=== PATIENT | female | born 1935 | race Caucasian/White ===

== ENCOUNTER 2020-07-11 13:18 | Emergency (ER) | payer MEDICARE, OTHER ==
[~2020-07-11] VITALS: Ht 152.4 cm; Wt 78.7 kg
[~2020-07-11 13:18] MED LIST: ASPI-255 PO; ATOR1TAB21 PO; LEVO100T5 PO; LISI40TA4 PO; METF10004 PO; OYST1TAB PO
[2020-07-11] MEDS ORDERED: INDA125TA PO (13:36)
[2020-07-11] MEDS ORDERED: NS 500 ML IV ONE ×2 (13:40→15:15)
[2020-07-11] MEDS ORDERED: ONDANSETRON 4MG/2ML VIAL IV ONE (14:10)
[2020-07-11 14:21] LABS: BASO # 0.2 10^3/uL (0.0-0.2); BASO % 0.9 % (0.0-1.0); EOS # 0.1 10^3/uL (0.0-0.5); EOS % 0.7 % (0.0-3.0); HEMOGLOBIN 14.3 g/dl (12.0-15.5); LYMPH # 0.9 10^3/uL (1.5-5.0); LYMPH % 5.1 % (24.0-44.0); MEAN CORPUSCULAR HEMOGLOBIN 30.6 pg (27.0-33.0); MEAN CORPUSCULAR HGB CONC 31.8 g/dl (32.0-36.5); MEAN CORPUSCULAR VOLUME 96.4 fl (80.0-96.0); MONO # 1.8 10^3/uL (0.0-0.8); MONO % 9.6 % (2.0-8.0); NEUTROPHILS % 82.2 % (36.0-66.0); PLATELET COUNT, AUTOMATED 396 10^3/uL (150-450); RED BLOOD COUNT 4.67 10^6/uL (4.00-5.40)
[2020-07-11 14:22] LABS: WHITE BLOOD COUNT 18.2 10^3/uL (4.0-10.0)
--- NOTE | 2020-07-11 14:28 | REP ---
INDICATION: wkness. COMPARISON: None. TECHNIQUE: Single portable AP view of the chest was performed. FINDINGS: There is mild fibro atelectatic change in the left lung base. No consolidating infiltrate is seen. The heart is not significantly enlarged. There is calcification of the thoracic aorta. The mediastinal silhouette is otherwise unremarkable. The visualized osseous structures appear intact. IMPRESSION: No radiographic evidence of infiltrate. <Electronically signed by Tin Muniz > 07/11/20 [id number]
[2020-07-11 14:49] LABS: ALT/SGPT 30 U/L (12-78); AMYLASE 64 U/L (25-115); BILIRUBIN,DIRECT < 0.1 MG/DL (0.0-0.2); BILIRUBIN,TOTAL 0.2 MG/DL (0.2-1.0); BLOOD UREA NITROGEN 30 MG/DL (7-18); CALCIUM LEVEL 8.9 MG/DL (8.8-10.2); CARBON DIOXIDE LEVEL 22 MEQ/L (21-32); CHLORIDE LEVEL 110 MEQ/L (98-107); CK-MB VALUE MASS < 1.0 NG/ML (<3.6); CPK CREATINE PHOSPHOKINASE 41 U/L (26-192); CREATININE FOR GFR 1.55 MG/DL (0.55-1.30); GLOMERULAR FILTRATION RATE 33.7 (>32); GLUCOSE, FASTING 114 MG/DL (70-100); LIPASE 141 U/L (73-393); MB/CK RELATIVE INDEX 2.44 (< OR =4); POTASSIUM SERUM 4.3 MEQ/L (3.5-5.1); SODIUM LEVEL 140 MEQ/L (136-145); TOTAL PROTEIN 6.8 GM/DL (6.4-8.2); TROPONIN I < 0.02 NG/ML (< 0.10)
[2020-07-11] MEDS ORDERED: LIDOCAINE 2% 5ML JELLY UROJET TOP ONE (15:15)
[2020-07-11] MEDS ORDERED: ISOVUE-370 76% 100ML VIAL As Ordered ONE (15:20)
--- NOTE | 2020-07-11 15:48 | REP ---
INDICATION: V/D/abdominal pain, significant leukocytosis. COMPARISON: None. TECHNIQUE: Helical scanning was acquired and 4 mm axial images are re-formatted. Coronal and sagittal MPR images were generated and reviewed. The contrast enhancement dose is 100 mL of intravenous Isovue 370. FINDINGS: Preliminary digital lifestyle coordinator radiograph is unremarkable. Normal bowel gas pattern. There are clips in the gallbladder fossa. The liver is normal in size homogeneous in texture. There is a small sliding-type hiatal hernia. Normal adrenal glands are observed. There is of an abrupt occlusion of the proximal splenic artery noted on postcontrast images. Celiac axis branches and SMA branches are otherwise intact. There are multiple low-density areas in the spleen consistent with large areas of splenic infarction. There is some perisplenic fat streaking and a small sliver of fluid in the left pericolic gutter is seen related to this. There is vascular calcification at the origin of the renal arteries but no evidence of renal artery o'clock occlusion is appreciated. Bilateral renal cortical cysts are present. Flow is observed in the inferior mesenteric artery. Small and large intestinal bowel loops are unremarkable in the abdomen and pelvis. No uterine or ovarian abnormality is seen. Uterus is tipped somewhat to the left. There is mild left colonic diverticulosis without CT evidence of diverticulitis. No evidence of free air or other free fluid. No bony destructive lesion is appreciated. 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 Mild diffuse fatty infiltration of the liver. Hiatal hernia. <Electronically signed by Roberth Wiggins > 07/11/20 [id number]
[2020-07-11 15:52] LABS: PARTIAL THROMBOPLASTIN TIME > 240.0 SECONDS (24.2-38.5); PROTHROMBIN TIME > 150.0 SECONDS (12.5-14.3)
--- NOTE | 2020-07-11 15:59 | REP ---
INDICATION: V/D/abdominal pain, significant leukocytosis. COMPARISON: Comparison is made with today's chest x-ray.. TECHNIQUE: Contrast dose: 100 ML of Isovue [address] technique: Helical scanning is acquired and overlapping 1.5 mm and contiguous 3 mm axial images are reformatted. In addition, maximum intensity projection and multiplanar re-formation images are generated in sagittal and coronal imaging projections. FINDINGS: There is good opacification in the pulmonary arterial tree. There is no evidence of vessel cut off or filling defect to suggest pulmonary embolus. There is good opacification of the thoracic aorta and no evidence of aneurysm or dissection is seen. However, there is a large irregularly shaped elongate filling defect in the lumen of the descending thoracic aorta consistent with unstable thrombus. This is associated with some calcific plaquing. This irregularly-shaped thrombus measures up to 4.5 cm in craniocaudal length by 1.4 cm in greatest transverse dimension. No pleural or pericardial effusion is apparent. There is a small hiatal hernia. There is vascular calcification in the left coronary artery distribution and at the great vessel origins. The small left vertebral artery is seen to take a direct aortic origin which is a normal variant. Lung window settings demonstrate no evidence of infiltrate or lung mass. There is some lingular and left lower lobe linear density consistent with platelike atelectasis. No bony destructive lesion is seen. In the upper abdomen, evidence of splenic infarction is noted as described in the CT abdomen report from the same date. Abrupt occlusion of the proximal splenic artery is observed. IMPRESSION: No CT evidence of pulmonary embolus. There is a 4.5 x 1.4 cm large irregularly-shaped unstable thrombus in the lumen of the proximal descending thoracic aorta. 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 Critical Findings: Large irregular intraluminal proximal descending aortic thrombus. Acute planning infarction. The critical information above was relayed directly by me by telephone to Pa Colon on 07/11/2020 at 3:53 pm with readback verification. <Electronically signed by Roberth Wiggins > 07/11/20 [id number]
[2020-07-11 16:42] LABS: INR 1.14; PROTHROMBIN TIME 14.9 SECONDS (12.5-14.3)
[2020-07-11 16:43] LABS: PARTIAL THROMBOPLASTIN TIME 27.9 SECONDS (24.2-38.5)
[2020-07-11] MEDS ORDERED: PILL CUTTER 1 EACH XX ONE (16:48)
[2020-07-11 17:05] LABS: RSV AMPLIFICATION NEGATIVE (NEGATIVE)
[2020-07-11] MEDS ORDERED: HEPARIN DRIP 25,000 UNITS in IV 1 EA IV SCH (17:15)
[2020-07-11] MEDS ORDERED: HEPARIN SOD (PORCINE) 5000UNITS/ML 1ML VIAL/SYRINGE IV ONE (17:15)
[2020-07-11 18:34] VITALS: BP 121/64
--- NOTE | 2020-07-11 19:49 | ECGEPIP ---
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
== END 2020-07-11 18:34 | disposition short-term general hospital (02) ==
LOC: M ED 13:18
DX: I74.11 Embolism and thrombosis of thoracic aorta (principal); I74.8 Embolism and thrombosis of other arteries; R11.10 Vomiting, unspecified; R19.7 Diarrhea, unspecified; K44.9 Diaphragmatic hernia without obstruction or gangrene; E11.9 Type 2 diabetes mellitus without complications; I10 Essential (primary) hypertension; Z87.891 Personal history of nicotine dependence; Z79.899 Other long term (current) drug therapy
CPT/HCPCS: 36415; 71045; 71275; 74177; 80048; 80076; 81001; 82150; 82550; 82553; 83605; 83690; 84484; 85025; 85610; 85730; 87040; 87086; 87631; 93005; 93041; 96361; 96365; 96375; 99285; J1644; J2405; Q9967

== ENCOUNTER → 2020-07-19 | Outpatient (CLI) | payer MEDICARE, OTHER ==
[~2020-07-19] MED LIST changes: +INDA125TA PO; +ISOVUE-370 76% 100ML VIAL As Ordered ONE
--- NOTE | 2020-07-19 14:06 | REP ---
INDICATION: EMBOLISM AND THROMBOSIS OF UNSPECIFIED PARTS OF AORTA COMPARISON: 07/11/2020 TECHNIQUE: CT angiography attention pulmonary arteries and thoracic aorta after the intravenous administration of 75 cc Isovue 370. FINDINGS: Once again, there is excellent visualization of the pulmonary arterial vasculature. No focal filling defects have developed since the last exam. The abnormal descending thoracic aortic density seen on the prior exam persists, however, it is smaller and less attenuating. No new aortic abnormalities have developed. The mediastinum and pulmonary carmine are unchanged. There are no pleural or pericardial effusions. There is no significant change in appearance of the imaged upper abdomen or imaged osseous structures. IMPRESSION: Findings involving the descending thoracic aorta as described above. By CT criteria it appears to have improved, however, further evaluation and follow-up may be necessary. <Electronically signed by Ulysses Huerta > 07/19/20 [id number]
== END ==
LOC: M RAD 11:00
PROVIDERS: ATTEND Nurse Practitioner Family
DX: I74.10 Embolism and thrombosis of unspecified parts of aorta (principal)
CPT/HCPCS: 71275; Q9967

== ENCOUNTER → 2020-10-21 | Outpatient (CLI) | payer MEDICARE, OTHER ==
[~2020-10-21] MED LIST changes: -ISOVUE-370 76% 100ML VIAL As Ordered ONE
[2020-10-21 12:53] LABS: CREATININE FOR GFR 1.14 MG/DL (0.55-1.30); GLOMERULAR FILTRATION RATE 48.1 (>32)
== END ==
LOC: M LAB 11:23
PROVIDERS: ATTEND Surgery
DX: Z01.818 Encounter for other preprocedural examination (principal)

== ENCOUNTER → 2020-10-31 | Outpatient (CLI) | payer MEDICARE, OTHER ==
[~2020-10-31] MED LIST changes: +ISOVUE-370 76% 100ML VIAL As Ordered ONE
--- NOTE | 2020-10-31 15:05 | REP ---
INDICATION: EMBOLISM/THROMBOSIS OF THORACIC AORTA COMPARISON: 07/19/2020 TECHNIQUE: CT angiography of the chest attention aorta after the intravenous administration of 75 cc Isovue 370 FINDINGS: The intraluminal thoracic aortic low-density areas seen within the intravenous contrast on the 2 prior exams is no longer present. The contrast opacification throughout the imaged aorta is within normal limits. There is no ectasia or aneurysmal dilatation. Peripheral calcifications are noted status quo. Injection timing and factors related to cardiac output of also allowed for excellent visualization of the pulmonary arterial vasculature. No focal filling defects are present that would be considered consistent with acute pulmonary emboli. There is no significant change in appearance of the mediastinum or pulmonary carmine. There is no evidence of a mass or adenopathy. There are no pleural or pericardial effusions. There is no change in appearance of the imaged imaged osseous structures. Mild spinal degenerative changes are noted status quo. The imaged upper abdomen shows a change in the morphologic appearance of the spleen in which a very thin waist has developed. There are bilateral renal cysts status quo. Evaluation of the lung rob shows scattered patchy ground-glass opacities essentially unchanged compared to the prior exam and likely secondary to subsegmental atelectatic changes. No masses or abnormal nodules have developed. IMPRESSION: 1. The aorta is now seen to be within normal limits as described above. 2. No pulmonary arterial abnormality as described above. 3. Change in appearance of the spleen as described above and possibly secondary to a splenic infarction which has developed since the last exam. 4. Other findings as described above. <Electronically signed by Ulysses Huerta > 10/31/20 [id number]
--- NOTE | 2020-10-31 15:19 | REP ---
INDICATION: EMBOLISM AND THROMBOSIS OF THORASIC AORTA COMPARISON: None TECHNIQUE: Axial contrast-enhanced images from the lung bases to the pubic symphysis using arterial angiographic technique with coronal and sagittal reformations. This CT examination was performed using the following dose reduction techniques: Automated exposure control, adjustment of mA and/or kv according to the patient's size, and use of iterative reconstruction technique. FINDINGS: The spleen is improved in appearance when compared to prior examination small residual areas of infarction are suggested and the splenic artery at the level of the mid pancreas appears at least partially thrombosed with subsequent arterial supply to the spleen via smaller pancreaticoduodenal and gastric collateral arteries. No perisplenic stranding or drainable collection/abscess/fluid collection. Visualized portions of the liver are normal. Bilateral adrenal glands are unremarkable. Evidence for prior cholecystectomy. Kidneys demonstrate age-related cortical thinning, mild chronic perinephric stranding, and few bilateral hypodensities measuring up to 2 cm consistent with cysts. The enteric system is without obstruction or definite acute inflammatory process. Colonic diverticulosis noted without acute diverticulitis. Pelvis demonstrates normal bladder and age-appropriate uterus/adnexa. No ascites. No free air. No adenopathy. No focal inflammatory stranding. Musculoskeletal structures are intact and without acute osseous abnormality. The abdominal aorta demonstrates mild scattered atherosclerotic changes without aneurysm or dissection. Major branch vessels including celiac axis, superior mesenteric artery, and renal arteries demonstrate normal enhancement without obvious stenosis or occlusion. IMPRESSION: 1. Spleen has an improved appearance with smaller areas of residual infarction noted. Arterial supply to the spleen via small collateral vessels from the celiac axis noted. The splenic artery is minimally enhanced at the level of the mid pancreatic body. 2. Nonacute findings as noted above. <Electronically signed by Dylan Goldman > 10/31/20 [id number]
== END ==
LOC: M RAD 13:11
PROVIDERS: ATTEND Surgery
DX: I74.11 Embolism and thrombosis of thoracic aorta (principal)
CPT/HCPCS: 71275; 74174; Q9967

== ENCOUNTER 2021-04-01 09:31 | Inpatient (IN) | payer MEDICARE, OTHER ==
[~2021-04-01] VITALS: Ht 152.4 cm; Wt 69.9 kg
[~2021-04-01 09:31] MED LIST changes: -ISOVUE-370 76% 100ML VIAL As Ordered ONE
[2021-04-01] MEDS ORDERED: NS 1,000 ML IV ONE ×2 (09:55→11:30)
[2021-04-01] MEDS ORDERED: HOME MED LIST COMPLETE! XX SCH (10:05)
[2021-04-01 10:52] LABS: BASO # 0.2 10^3/uL (0.0-0.2); BASO % 1.2 % (0.0-1.0); EOS # 0.2 10^3/uL (0.0-0.5); HEMATOCRIT 47.1 % (36.0-47.0); HEMOGLOBIN 14.4 g/dl (12.0-15.5); LYMPH # 1.1 10^3/uL (1.5-5.0); LYMPH % 7.3 % (24.0-44.0); MEAN CORPUSCULAR HEMOGLOBIN 27.7 pg (27.0-33.0); MEAN CORPUSCULAR HGB CONC 30.6 g/dl (32.0-36.5); MEAN CORPUSCULAR VOLUME 90.6 fl (80.0-96.0); MONO # 1.3 10^3/uL (0.0-0.8); MONO % 8.9 % (2.0-8.0); NEUTROPHILS # 11.9 10^3/uL (1.5-8.5); NEUTROPHILS % 80.9 % (36.0-66.0); PLATELET COUNT, AUTOMATED 345 10^3/uL (150-450); WHITE BLOOD COUNT 14.8 10^3/uL (4.0-10.0)
[2021-04-01 11:20] LABS: ALBUMIN 3.5 GM/DL (3.2-5.2); BILIRUBIN,DIRECT 0.1 MG/DL (0.0-0.2); BILIRUBIN,TOTAL 0.4 MG/DL (0.2-1.0); CALCIUM LEVEL 9.9 MG/DL (8.8-10.2); CREATININE FOR GFR 1.87 MG/DL (0.55-1.30); GLOMERULAR FILTRATION RATE 27.1 (>32); POTASSIUM SERUM 3.5 MEQ/L (3.5-5.1); TOTAL PROTEIN 6.8 GM/DL (6.4-8.2)
[2021-04-01] MEDS ORDERED: ACETAMINOPHEN TAB 650MG DOSE (2X325MG) PO PRN (14:55)
[2021-04-01] MEDS ORDERED: MOM 30ML SUSPENSION UDC PO PRN (14:55)
[2021-04-01] MEDS ORDERED: MAALOX 30 ML SUSP *UDC PO PRN (14:55)
[2021-04-01 16:15] VITALS: BP 174/95
[2021-04-01] MEDS: NS 1,000 ML IV SCH ×2 (16:29→23:28)
[2021-04-01] MEDS: HEPARIN SOD (PORCINE) 5000UNITS/ML 1ML VIAL/SYRINGE SC SCH (21:06)
[2021-04-01 21:56] VITALS: BP 164/63
[2021-04-02] MEDS: LEVOTHYROXINE 100MCG TABLET (0.1MG) PO SCH (05:57)
[2021-04-02 06:00] VITALS: BP 160/65
[2021-04-02] MEDS: NS 1,000 ML IV SCH ×2 (07:02→21:01)
[2021-04-02] MEDS: HEPARIN SOD (PORCINE) 5000UNITS/ML 1ML VIAL/SYRINGE SC SCH ×2 (08:20→21:01)
[2021-04-02 09:42] LABS: BASO # 0.1 10^3/uL (0.0-0.2); BASO % 0.8 % (0.0-1.0); EOS # 0.1 10^3/uL (0.0-0.5); EOS % 0.5 % (0.0-3.0); HEMATOCRIT 39.8 % (36.0-47.0); LYMPH # 0.8 10^3/uL (1.5-5.0); LYMPH % 5.7 % (24.0-44.0); MEAN CORPUSCULAR HEMOGLOBIN 27.8 pg (27.0-33.0); MEAN CORPUSCULAR HGB CONC 30.4 g/dl (32.0-36.5); MEAN CORPUSCULAR VOLUME 91.5 fl (80.0-96.0); MONO # 1.2 10^3/uL (0.0-0.8); MONO % 8.4 % (2.0-8.0); NEUTROPHILS # 12.1 10^3/uL (1.5-8.5); PLATELET COUNT, AUTOMATED 264 10^3/uL (150-450); RED BLOOD COUNT 4.35 10^6/uL (4.00-5.40); WHITE BLOOD COUNT 14.5 10^3/uL (4.0-10.0)
[2021-04-02 09:44] LABS: HEMOGLOBIN 12.1 g/dl (12.0-15.5)
[2021-04-02 10:26] LABS: ALBUMIN 2.6 GM/DL (3.2-5.2); BILIRUBIN,TOTAL 0.3 MG/DL (0.2-1.0); CALCIUM LEVEL 8.2 MG/DL (8.8-10.2); CREATININE FOR GFR 1.3 MG/DL (0.55-1.30); GLOMERULAR FILTRATION RATE 41.2 (>32); MAGNESIUM LEVEL 1.6 MG/DL (1.8-2.4); POTASSIUM SERUM 2.9 MEQ/L (3.5-5.1); TOTAL PROTEIN 5.6 GM/DL (6.4-8.2)
[2021-04-02] MEDS: MAG SULF 1GM/100ML (MAG RUN) 1 GM in IV 1 EA IV SCH ×2 (11:03→12:02)
[2021-04-02] MEDS ORDERED: LOPERAMIDE 2 MG CAPLET PO PRN (11:30)
[2021-04-02] MEDS: lisinopriL 40 MG TAB PO SCH (12:02)
[2021-04-02] MEDS: CHOLESTYRAMINE 4 GM PWD PKT PO SCH ×3 (12:02→21:01)
[2021-04-02 12:19] LABS: FREE T4 2.18 NG/DL (0.76-1.46); THYROID STIMULATING HORMONE 0.105 uIU/ML (0.358-3.740)
[2021-04-02] MEDS: KCL 10MEQ/100ML SWI (KRUN) 10 MEQ in IV 1 EA IV SCH ×4 (13:13→16:25)
[2021-04-02 14:00] VITALS: BP 156/65
[2021-04-02] MEDS ORDERED: LOMOTIL 2.5MG/0.025MG TABLET PO SCH (16:00)
[2021-04-02 22:00] VITALS: BP 153/66
[2021-04-03] VITALS (7 sets, daily range): BP systolic 124–152; BP diastolic 67–73
[2021-04-03] MEDS: NS 1,000 ML IV SCH ×4 (00:30→20:30)
[2021-04-03] MEDS: LEVOTHYROXINE 100MCG TABLET (0.1MG) PO SCH (05:33)
[2021-04-03 07:09] LABS: BASO # 0.1 10^3/uL (0.0-0.2); BASO % 0.8 % (0.0-1.0); EOS # 0.2 10^3/uL (0.0-0.5); EOS % 1.3 % (0.0-3.0); HEMATOCRIT 37.4 % (36.0-47.0); HEMOGLOBIN 11.5 g/dl (12.0-15.5); LYMPH # 0.8 10^3/uL (1.5-5.0); LYMPH % 5.7 % (24.0-44.0); MEAN CORPUSCULAR HEMOGLOBIN 27.8 pg (27.0-33.0); MEAN CORPUSCULAR HGB CONC 30.7 g/dl (32.0-36.5); MEAN CORPUSCULAR VOLUME 90.6 fl (80.0-96.0); MONO # 1.4 10^3/uL (0.0-0.8); MONO % 9.6 % (2.0-8.0); NEUTROPHILS # 11.7 10^3/uL (1.5-8.5); PLATELET COUNT, AUTOMATED 247 10^3/uL (150-450); RED BLOOD COUNT 4.13 10^6/uL (4.00-5.40); WHITE BLOOD COUNT 14.2 10^3/uL (4.0-10.0)
[2021-04-03 07:47] LABS: ALBUMIN 2.3 GM/DL (3.2-5.2); BILIRUBIN,TOTAL 0.2 MG/DL (0.2-1.0); CALCIUM LEVEL 7.9 MG/DL (8.8-10.2); CREATININE FOR GFR 1.02 MG/DL (0.55-1.30); GLOMERULAR FILTRATION RATE 54.6 (>32); MAGNESIUM LEVEL 1.9 MG/DL (1.8-2.4); POTASSIUM SERUM 4.1 MEQ/L (3.5-5.1); TOTAL PROTEIN 5.2 GM/DL (6.4-8.2)
[2021-04-03] MEDS: HEPARIN SOD (PORCINE) 5000UNITS/ML 1ML VIAL/SYRINGE SC SCH ×2 (07:47→20:30)
[2021-04-03] MEDS: lisinopriL 40 MG TAB PO SCH (07:47)
[2021-04-03] MEDS: CHOLESTYRAMINE 4 GM PWD PKT PO SCH ×3 (07:47→20:30)
[2021-04-03] MEDS ORDERED: GOLYTELY SOLN 4000 ML BTL PO ONE (08:00)
[2021-04-03] MEDS ORDERED: FLEET ENEMA PR ONE (15:00)
[2021-04-03] MEDS ORDERED: fentaNYL 100 MCG/2 ML INJECTION (J3010) As Ordered ONE (17:32)
[2021-04-03] MEDS ORDERED: LIDOCAINE 2% 100MG/5ML SDV (FOR ANES.) As Ordered ONE (17:33)
[2021-04-03] MEDS ORDERED: propofoL 200 MG/20 ML VIAL As Ordered ONE (17:33)
[2021-04-03] MEDS ORDERED: LR 1,000 ML IV SCH (19:00)
[2021-04-03] MEDS ORDERED: ONDANSETRON 4MG/2ML VIAL IV PRN (19:00)
[2021-04-04] VITALS: BP 104/57
[2021-04-04 04:00] VITALS: BP 129/70
[2021-04-04] MEDS: LEVOTHYROXINE 100MCG TABLET (0.1MG) PO SCH (05:17)
[2021-04-04] MEDS: NS 1,000 ML IV SCH (05:17)
[2021-04-04 06:00] VITALS: BP 149/66
[2021-04-04 06:44] LABS: ALBUMIN 2.4 GM/DL (3.2-5.2); BILIRUBIN,TOTAL 0.4 MG/DL (0.2-1.0); CALCIUM LEVEL 8.5 MG/DL (8.8-10.2); CREATININE FOR GFR 1.03 MG/DL (0.55-1.30); MAGNESIUM LEVEL 1.7 MG/DL (1.8-2.4); POTASSIUM SERUM 3.8 MEQ/L (3.5-5.1); TOTAL PROTEIN 5.8 GM/DL (6.4-8.2)
[2021-04-04 07:37] LABS: BASO # 0.1 10^3/uL (0.0-0.2); BASO % 0.7 % (0.0-1.0); EOS # 0.1 10^3/uL (0.0-0.5); EOS % 0.9 % (0.0-3.0); HEMATOCRIT 36.4 % (36.0-47.0); HEMOGLOBIN 11.2 g/dl (12.0-15.5); LYMPH # 0.7 10^3/uL (1.5-5.0); LYMPH % 4.9 % (24.0-44.0); MEAN CORPUSCULAR HEMOGLOBIN 27.5 pg (27.0-33.0); MEAN CORPUSCULAR HGB CONC 30.8 g/dl (32.0-36.5); MEAN CORPUSCULAR VOLUME 89.2 fl (80.0-96.0); MONO # 1.5 10^3/uL (0.0-0.8); MONO % 10.9 % (2.0-8.0); NEUTROPHILS # 11.1 10^3/uL (1.5-8.5); NEUTROPHILS % 82.1 % (36.0-66.0); PLATELET COUNT, AUTOMATED 271 10^3/uL (150-450); RED BLOOD COUNT 4.08 10^6/uL (4.00-5.40); WHITE BLOOD COUNT 13.5 10^3/uL (4.0-10.0)
[2021-04-04] MEDS: lisinopriL 40 MG TAB PO SCH (08:44)
[2021-04-04] MEDS: CHOLESTYRAMINE 4 GM PWD PKT PO SCH (08:44)
[2021-04-04] MEDS: HEPARIN SOD (PORCINE) 5000UNITS/ML 1ML VIAL/SYRINGE SC SCH (08:45)
[2021-04-04] MEDS ORDERED: FUROSEMIDE 100MG/10ML VIAL (J1940) IV ONE (10:40)
[2021-04-04] MEDS ORDERED: CHOL4PW PO (11:08)
== END 2021-04-04 12:40 | disposition home or self-care (01) | DRG 683 ==
LOC: M ED 09:31 → M ED INP 14:52 → ENRESERV 15:40 → M MS5PR 16:38
PROVIDERS: ADMIT Family Medicine; ATTEND Family Medicine
PROC: 0DBN8ZZ Excision of Sigmoid Colon, Via Natural or Artificial Opening Endoscopic (ICD-10-PCS; 2021-04-03)
PROC: 0DBE8ZX Excision of Large Intestine, Via Natural or Artificial Opening Endoscopic, Diagnostic (ICD-10-PCS; 2021-04-03)
PROC: 0DB78ZX Excision of Stomach, Pylorus, Via Natural or Artificial Opening Endoscopic, Diagnostic (ICD-10-PCS; principal; 2021-04-03 17:30)
DX: N17.9 Acute kidney failure, unspecified (principal); E87.2 Acidosis; D12.5 Benign neoplasm of sigmoid colon; E11.9 Type 2 diabetes mellitus without complications; E78.5 Hyperlipidemia, unspecified; E03.9 Hypothyroidism, unspecified; Z90.49 Acquired absence of other specified parts of digestive tract; R11.15 Cyclical vomiting syndrome unrelated to migraine; R63.4 Abnormal weight loss; K44.9 Diaphragmatic hernia without obstruction or gangrene; K29.70 Gastritis, unspecified, without bleeding; K57.30 Diverticulosis of large intestine without perforation or abscess without bleeding; K64.8 Other hemorrhoids; K52.9 Noninfective gastroenteritis and colitis, unspecified; Z79.899 Other long term (current) drug therapy

== ENCOUNTER 2021-04-16 12:45 | Inpatient (IN) | payer MEDICARE, OTHER ==
[~2021-04-16] VITALS: Ht 152.4 cm; Wt 67.9 kg
[~2021-04-16 12:45] MED LIST changes: +CHOL4PW PO
[2021-04-16 15:41] LABS: BASO # 0.1 10^3/uL (0.0-0.2); BASO % 0.7 % (0.0-1.0); EOS # 0.1 10^3/uL (0.0-0.5); EOS % 0.3 % (0.0-3.0); HEMATOCRIT 46.7 % (36.0-47.0); HEMOGLOBIN 14.4 g/dl (12.0-15.5); LYMPH # 1.2 10^3/uL (1.5-5.0); LYMPH % 6.4 % (24.0-44.0); MEAN CORPUSCULAR HEMOGLOBIN 27.1 pg (27.0-33.0); MEAN CORPUSCULAR HGB CONC 30.8 g/dl (32.0-36.5); MEAN CORPUSCULAR VOLUME 87.9 fl (80.0-96.0); MONO % 8.7 % (2.0-8.0); NEUTROPHILS # 15.1 10^3/uL (1.5-8.5); NEUTROPHILS % 83.2 % (36.0-66.0); PLATELET COUNT, AUTOMATED 348 10^3/uL (150-450); RED BLOOD COUNT 5.31 10^6/uL (4.00-5.40); WHITE BLOOD COUNT 18.2 10^3/uL (4.0-10.0)
[2021-04-16 15:42] LABS: MONO # 1.6 10^3/uL (0.0-0.8)
[2021-04-16 17:14] LABS: ERYTHROCYTE SEDIMENTATION RATE 21 mm/hr (0-30)
[2021-04-16 17:26] LABS: C REACTIVE PROTEIN QUANTITATIV 9.19 MG/DL (0.00-0.30); CALCIUM LEVEL 9.1 MG/DL (8.8-10.2); CREATININE FOR GFR 1.32 MG/DL (0.55-1.30); GLOMERULAR FILTRATION RATE 40.5 (>32); POTASSIUM SERUM 3.6 MEQ/L (3.5-5.1)
[2021-04-16] MEDS ORDERED: cefTRIAXone SOD 1 GM in D5W MINI-BAG PLUS 50 ML IV ONE (17:50)
[2021-04-16] MEDS ORDERED: CHOL4POW4 PO (18:43)
[2021-04-16] MEDS ORDERED: D31000TA2 PO (18:43)
[2021-04-16] MEDS ORDERED: SYNT88TA2 PO (18:43)
[2021-04-16] MEDS ORDERED: LOPE1CAP5 PO (18:43)
[2021-04-16] MEDS ORDERED: HOME MED LIST COMPLETE! XX SCH (18:45)
[2021-04-16] MEDS ORDERED: PERCOCET 5MG/325MG TAB PO PRN ×2 (19:40)
[2021-04-16] MEDS ORDERED: LR 1,000 ML IV ONE (19:40)
[2021-04-16 20:00] LABS: URIC ACID 7.6 MG/DL (2.6-6.0)
[2021-04-16] MEDS: ACETAMINOPHEN TAB 650MG DOSE (2X325MG) PO PRN (20:52)
[2021-04-16] MEDS ORDERED: COLCHICINE 0.6 MG TABLET PO ONE (21:05)
[2021-04-16 21:06] LABS: INR 1.11; PROTHROMBIN TIME 14.7 SECONDS (12.7-14.5)
[2021-04-16 21:07] LABS: PARTIAL THROMBOPLASTIN TIME 33.1 SECONDS (25.9-37.0)
[2021-04-17] MEDS ORDERED: LOPERAMIDE 2 MG CAPLET PO PRN (00:35)
[2021-04-17] MEDS: ACETAMINOPHEN TAB 650MG DOSE (2X325MG) PO PRN ×2 (02:52→20:45)
[2021-04-17 03:45] VITALS: BP 150/65
[2021-04-17] MEDS: LEVOTHYROXINE 88MCG TABLET (0.088 MG) PO SCH (05:56)
[2021-04-17 07:41] LABS: CALCIUM LEVEL 8.8 MG/DL (8.8-10.2); CREATININE FOR GFR 1.17 MG/DL (0.55-1.30); GLOMERULAR FILTRATION RATE 46.6 (>32); POTASSIUM SERUM 3.5 MEQ/L (3.5-5.1)
[2021-04-17 07:57] LABS: HEMATOCRIT 39.5 % (36.0-47.0); MEAN CORPUSCULAR HEMOGLOBIN 27.8 pg (27.0-33.0); MEAN CORPUSCULAR HGB CONC 31.1 g/dl (32.0-36.5); MEAN CORPUSCULAR VOLUME 89.4 fl (80.0-96.0); PLATELET COUNT, AUTOMATED 312 10^3/uL (150-450); RED BLOOD COUNT 4.42 10^6/uL (4.00-5.40); WHITE BLOOD COUNT 14.8 10^3/uL (4.0-10.0)
[2021-04-17 08:00] LABS: HEMOGLOBIN 12.3 g/dl (12.0-15.5)
[2021-04-17] MEDS: lisinopriL 40 MG TAB PO SCH (08:07)
[2021-04-17] MEDS: ENOXAPARIN 30MG/0.3ML SYRINGE (J1650 PER 10MG) SC SCH (08:08)
[2021-04-17] MEDS: CHOLESTYRAMINE 4 GM PWD PKT PO SCH ×3 (08:08→20:44)
[2021-04-17] MEDS: COLCHICINE 0.6 MG TABLET PO SCH (08:08)
[2021-04-17] MEDS ORDERED: ENOXAPARIN 40MG/0.4ML SYRINGE (J1650 PER 10MG) SC SCH (09:00)
[2021-04-17] MEDS ORDERED: KETOROLAC 30 MG/ML 1ML VIAL IV ONE ×2 (09:20→11:30)
[2021-04-17] MEDS: AMPICILLIN SOD/SULBACTAM SOD 3 GM in D5W MINI-BAG PLUS 100 ML IV SCH ×3 (10:39→22:28)
[2021-04-17] MEDS: SODIUM BICARBONATE 325 MG TAB PO SCH ×2 (10:39→20:44)
[2021-04-17 14:00] VITALS: BP 148/64
[2021-04-17 22:00] VITALS: BP 150/69
[2021-04-18] MEDS: AMPICILLIN SOD/SULBACTAM SOD 3 GM in D5W MINI-BAG PLUS 100 ML IV SCH ×4 (04:11→23:13)
[2021-04-18] MEDS: LEVOTHYROXINE 88MCG TABLET (0.088 MG) PO SCH (05:15)
[2021-04-18 06:00] VITALS: BP 149/67
[2021-04-18] MEDS: lisinopriL 40 MG TAB PO SCH (08:32)
[2021-04-18] MEDS: CHOLESTYRAMINE 4 GM PWD PKT PO SCH ×3 (08:32→20:48)
[2021-04-18] MEDS: COLCHICINE 0.6 MG TABLET PO SCH (08:32)
[2021-04-18] MEDS: SODIUM BICARBONATE 325 MG TAB PO SCH ×2 (08:32→20:49)
[2021-04-18 10:04] VITALS: BP 142/76
[2021-04-18] MEDS: ENOXAPARIN 30MG/0.3ML SYRINGE (J1650 PER 10MG) SC SCH (10:19)
[2021-04-18 14:00] VITALS: BP 150/68
[2021-04-18 22:00] VITALS: BP 147/66
[2021-04-19] MEDS: AMPICILLIN SOD/SULBACTAM SOD 3 GM in D5W MINI-BAG PLUS 100 ML IV SCH ×2 (04:18→10:00)
[2021-04-19] MEDS: LEVOTHYROXINE 88MCG TABLET (0.088 MG) PO SCH (05:18)
[2021-04-19 06:19] LABS: ABG BASE EXCESS -2.7 (-2.0-2.0); ABG HCO3 21.2 MEQ/L (22.0-26.0); ABG O2 SATURATION 97.6 % (95.0-99.0); ABG PARTIAL PRESSURE CO2 34.1 mmHg (35.0-45.0); ABG STANDARD HCO3 22.3 MEQ/L (22.0-26.0); ABG TOTAL CO2 22.3 MEQ/L (23.0-31.0); ABG pH (ARTERIAL) 7.412 UNITS (7.350-7.450)
[2021-04-19] MEDS: CHOLESTYRAMINE 4 GM PWD PKT PO SCH ×2 (08:00→13:00)
[2021-04-19 08:35] LABS: BASO # 0.1 10^3/uL (0.0-0.2); BASO % 1.4 % (0.0-1.0); EOS # 0.4 10^3/uL (0.0-0.5); EOS % 3.8 % (0.0-3.0); HEMATOCRIT 42.8 % (36.0-47.0); HEMOGLOBIN 13.2 g/dl (12.0-15.5); LYMPH # 0.9 10^3/uL (1.5-5.0); LYMPH % 8.9 % (24.0-44.0); MEAN CORPUSCULAR HEMOGLOBIN 26.9 pg (27.0-33.0); MEAN CORPUSCULAR HGB CONC 30.8 g/dl (32.0-36.5); MEAN CORPUSCULAR VOLUME 87.3 fl (80.0-96.0); MONO % 9.3 % (2.0-8.0); NEUTROPHILS # 7.7 10^3/uL (1.5-8.5); NEUTROPHILS % 76.1 % (36.0-66.0); PLATELET COUNT, AUTOMATED 428 10^3/uL (150-450); WHITE BLOOD COUNT 10.2 10^3/uL (4.0-10.0)
[2021-04-19] MEDS: COLCHICINE 0.6 MG TABLET PO SCH (08:42)
[2021-04-19] MEDS: lisinopriL 40 MG TAB PO SCH (08:42)
[2021-04-19] MEDS: SODIUM BICARBONATE 325 MG TAB PO SCH (08:43)
[2021-04-19] MEDS: ENOXAPARIN 30MG/0.3ML SYRINGE (J1650 PER 10MG) SC SCH (08:43)
[2021-04-19 09:06] LABS: CALCIUM LEVEL 8.9 MG/DL (8.8-10.2); CREATININE FOR GFR 1.28 MG/DL (0.55-1.30); POTASSIUM SERUM 3.4 MEQ/L (3.5-5.1)
[2021-04-19] MEDS ORDERED: CEFDINIR 300 MG CAP (OMNICEF) PO ONE (12:00)
[2021-04-19] MEDS ORDERED: COLC0.6T47 PO (12:21)
[2021-04-19] MEDS ORDERED: ACET1TAB55 PO (12:21)
[2021-04-19] MEDS ORDERED: CEFD300CAP PO (12:21)
[2021-04-19] MEDS ORDERED: POTASSIUM CHLORIDE 10MEQ SR TABLET PO ONE (13:00)
== END 2021-04-19 14:45 | disposition home or self-care (01) | DRG 638 ==
LOC: M ED 12:45 → M ED INP 12:46 → ENRESERV 04-17 03:11 → M MS5PR 04-17 03:48 → OBSVTOIN 04-17 11:25
PROVIDERS: ADMIT Family Medicine; ATTEND Internal Medicine Nephrology
DX: E11.628 Type 2 diabetes mellitus with other skin complications (principal); L03.116 Cellulitis of left lower limb; E87.2 Acidosis; N17.9 Acute kidney failure, unspecified; I10 Essential (primary) hypertension; E03.9 Hypothyroidism, unspecified; K59.09 Other constipation; Z79.899 Other long term (current) drug therapy; Z20.822 Contact with and (suspected) exposure to COVID-19; M10.9 Gout, unspecified; E78.5 Hyperlipidemia, unspecified; Z98.41 Cataract extraction status, right eye; Z98.42 Cataract extraction status, left eye; Z90.49 Acquired absence of other specified parts of digestive tract; K52.9 Noninfective gastroenteritis and colitis, unspecified

== ENCOUNTER 2021-08-02 13:53 | Inpatient (IN) | payer MEDICARE, OTHER ==
[~2021-08-02] VITALS: Ht 152.4 cm; Wt 57.5 kg
[~2021-08-02 13:53] MED LIST changes: +ACET1TAB55 PO; +CEFD300CAP PO; +CHOL4POW15 PO; +COLC0.6T47 PO; +LOPE1CAP5 PO; +SYNT88TA2 PO; +VITA100093 PO
[2021-08-02] MEDS ORDERED: traMADol 50 MG TAB PO ONE (19:50)
[2021-08-02 20:24] LABS: BASO # 0.1 10^3/uL (0.0-0.2); BASO % 1.1 % (0.0-1.0); EOS # 0.1 10^3/uL (0.0-0.5); EOS % 0.6 % (0.0-3.0); HEMATOCRIT 42.6 % (36.0-47.0); HEMOGLOBIN 14.4 g/dl (12.0-15.5); LYMPH # 0.9 10^3/uL (1.5-5.0); LYMPH % 8.7 % (24.0-44.0); MEAN CORPUSCULAR HEMOGLOBIN 29.6 pg (27.0-33.0); MEAN CORPUSCULAR HGB CONC 33.8 g/dl (32.0-36.5); MEAN CORPUSCULAR VOLUME 87.7 fl (80.0-96.0); MONO # 0.9 10^3/uL (0.0-0.8); MONO % 8.7 % (2.0-8.0); NEUTROPHILS # 8.2 10^3/uL (1.5-8.5); NEUTROPHILS % 79.6 % (36.0-66.0); PLATELET COUNT, AUTOMATED 390 10^3/uL (150-450); RED BLOOD COUNT 4.86 10^6/uL (4.00-5.40); WHITE BLOOD COUNT 10.3 10^3/uL (4.0-10.0)
[2021-08-02] MEDS: INSULIN LISPRO (NovoLOG) PER UNIT SC SCH (21:00)
[2021-08-02 21:01] LABS: ERYTHROCYTE SEDIMENTATION RATE 4 mm/hr (0-30)
[2021-08-02] MEDS ORDERED: ISOVUE-370 76% 100ML VIAL As Ordered ONE (21:54)
[2021-08-02] MEDS ORDERED: NORCO, ANEXSIA 5/325MG TABLET (HYDROcodone/ACETAMINOPHEN) PO ONE (21:55)
[2021-08-02] MEDS ORDERED: cefTRIAXone SOD 1 GM in D5W MINI-BAG PLUS 50 ML IV ONE (21:55)
[2021-08-02 22:46] LABS: INR 1.02; PROTHROMBIN TIME 13.8 SECONDS (12.7-14.5)
[2021-08-02 22:47] LABS: PARTIAL THROMBOPLASTIN TIME 34.2 SECONDS (25.9-37.0)
[2021-08-02 23:58] LABS: RSV AMPLIFICATION NEGATIVE (NEGATIVE)
[2021-08-03] MEDS ORDERED: DEXTROSE 50% 50 ML SYRINGE IV PRN (00:35)
[2021-08-03] MEDS ORDERED: GLUCAGON INJ 1MG VIAL SC PRN (00:35)
[2021-08-03] MEDS ORDERED: HEPARIN SOD (PORCINE) 5000UNITS/ML 1ML VIAL/SYRINGE IV ONE (00:35)
[2021-08-03] MEDS ORDERED: GLUCOSE 4GM CHEW TABLET PO PRN (00:35)
[2021-08-03] MEDS ORDERED: HEPARIN SOD (PORCINE) 5000UNITS/ML 1ML VIAL/SYRINGE IV PRN (00:35)
[2021-08-03] MEDS ORDERED: HOME MED LIST COMPLETE! XX SCH (01:10)
[2021-08-03] MEDS ORDERED: VANCOMYCIN HCL 1,000 MG in IV FLUID PLACE HOLDER 1 EA IV SCH (01:15)
[2021-08-03] MEDS ORDERED: VANCOMYCIN HCL 1,000 MG, VIAL MATE ADAPTER 1 EACH in NS 250 ML IV ONE (01:30)
[2021-08-03] MEDS: HEPARIN DRIP 25,000 UNITS in IV 1 EA IV SCH ×2 (03:09→16:59)
[2021-08-03 06:25] VITALS: BP 184/80
[2021-08-03] MEDS ORDERED: lisinopriL 40MG TAB PO ONE (07:05)
[2021-08-03] MEDS: LEVOTHYROXINE 88MCG TABLET (0.088 MG) PO SCH (07:11)
[2021-08-03 07:37] LABS: BASO # 0.1 10^3/uL (0.0-0.2); BASO % 1.1 % (0.0-1.0); EOS # 0.1 10^3/uL (0.0-0.5); HEMATOCRIT 38.2 % (36.0-47.0); HEMOGLOBIN 12.7 g/dl (12.0-15.5); LYMPH # 0.8 10^3/uL (1.5-5.0); LYMPH % 6.8 % (24.0-44.0); MEAN CORPUSCULAR HEMOGLOBIN 29.4 pg (27.0-33.0); MEAN CORPUSCULAR HGB CONC 33.2 g/dl (32.0-36.5); MEAN CORPUSCULAR VOLUME 88.4 fl (80.0-96.0); MONO # 1.2 10^3/uL (0.0-0.8); MONO % 10.2 % (2.0-8.0); NEUTROPHILS # 9.4 10^3/uL (1.5-8.5); NEUTROPHILS % 79.6 % (36.0-66.0); PLATELET COUNT, AUTOMATED 357 10^3/uL (150-450); RED BLOOD COUNT 4.32 10^6/uL (4.00-5.40); WHITE BLOOD COUNT 11.8 10^3/uL (4.0-10.0)
[2021-08-03] MEDS ORDERED: PIPERACILLIN/TAZOBACTAM SOD 3.375 GM in D5W MINI-BAG PLUS 50 ML IV SCH (08:00)
[2021-08-03 08:02] LABS: CK-MB VALUE MASS 2.1 NG/ML (<3.6); MB/CK RELATIVE INDEX 5.68 (< OR =4)
[2021-08-03 08:36] LABS: ALBUMIN 2.6 GM/DL (3.2-5.2); BILIRUBIN,TOTAL 0.4 MG/DL (0.2-1.0); C REACTIVE PROTEIN QUANTITATIV 1.1 MG/DL (0.00-0.30); CALCIUM LEVEL 8.1 MG/DL (8.8-10.2); CREATININE FOR GFR 1.39 MG/DL (0.55-1.30); GLOMERULAR FILTRATION RATE 38.2 (>32); POTASSIUM SERUM 3.5 MEQ/L (3.5-5.1); TOTAL PROTEIN 5.3 GM/DL (6.4-8.2)
[2021-08-03] MEDS ORDERED: lisinopriL 40MG TAB PO SCH (09:00)
[2021-08-03 09:33] VITALS: BP 166/72
[2021-08-03 10:21] LABS: CK-MB VALUE MASS 2.2 NG/ML (<3.6); MB/CK RELATIVE INDEX 6.29 (< OR =4)
[2021-08-03] MEDS: PIPERACILLIN/TAZOBACTAM SOD 3.375 GM in D5W MINI-BAG PLUS 50 ML IV SCH ×3 (10:30→22:42)
[2021-08-03] MEDS: INSULIN LISPRO (NovoLOG) PER UNIT SC SCH ×4 (10:34→20:56)
[2021-08-03] MEDS: amLODIPine 5 MG TAB PO SCH (12:24)
[2021-08-03 15:03] VITALS: BP 128/61
[2021-08-03 17:01] VITALS: BP 156/67
[2021-08-03 20:00] VITALS: BP 124/58
[2021-08-03] MEDS ORDERED: cefTRIAXone SOD 1 GM in D5W MINI-BAG PLUS 50 ML IV SCH (20:00)
[2021-08-03 20:57] LABS: INR 1.08; PROTHROMBIN TIME 14.4 SECONDS (12.7-14.5)
[2021-08-03] MEDS: VANCOMYCIN HCL 750 MG, VIAL MATE ADAPTER 1 EACH in NS 250 ML IV SCH (21:12)
[2021-08-03] MEDS: ACETAMINOPHEN TAB 650MG DOSE (2X325MG) PO PRN (21:12)
[2021-08-03 21:54] LABS: PARTIAL THROMBOPLASTIN TIME 127.7 SECONDS (25.9-37.0)
[2021-08-04 01:31] VITALS: BP 102/49
[2021-08-04 03:35] VITALS: BP 112/54
[2021-08-04] MEDS: PIPERACILLIN/TAZOBACTAM SOD 3.375 GM in D5W MINI-BAG PLUS 50 ML IV SCH ×4 (04:05→22:04)
[2021-08-04 05:28] LABS: BASO # 0.1 10^3/uL (0.0-0.2); BASO % 1.4 % (0.0-1.0); EOS # 0.2 10^3/uL (0.0-0.5); EOS % 2.5 % (0.0-3.0); HEMATOCRIT 34.1 % (36.0-47.0); HEMOGLOBIN 11.5 g/dl (12.0-15.5); LYMPH # 0.8 10^3/uL (1.5-5.0); LYMPH % 8.2 % (24.0-44.0); MEAN CORPUSCULAR HEMOGLOBIN 30.3 pg (27.0-33.0); MEAN CORPUSCULAR HGB CONC 33.7 g/dl (32.0-36.5); MONO % 10.3 % (2.0-8.0); NEUTROPHILS # 7.3 10^3/uL (1.5-8.5); NEUTROPHILS % 76.6 % (36.0-66.0); PLATELET COUNT, AUTOMATED 289 10^3/uL (150-450); RED BLOOD COUNT 3.79 10^6/uL (4.00-5.40); WHITE BLOOD COUNT 9.5 10^3/uL (4.0-10.0)
[2021-08-04] MEDS: LEVOTHYROXINE 88MCG TABLET (0.088 MG) PO SCH (05:32)
[2021-08-04 06:02] LABS: C REACTIVE PROTEIN QUANTITATIV 1.38 MG/DL (0.00-0.30); CREATININE FOR GFR 1.6 MG/DL (0.55-1.30); GLOMERULAR FILTRATION RATE 32.5 (>32); POTASSIUM SERUM 3.1 MEQ/L (3.5-5.1)
[2021-08-04] MEDS: INSULIN LISPRO (NovoLOG) PER UNIT SC SCH ×4 (07:30→20:48)
[2021-08-04] MEDS ORDERED: POTASSIUM CHLORIDE 10% LIQ 20 MEQ/15 ML UDC PO ONE (07:35)
[2021-08-04] MEDS ORDERED: ELIQ5TAB PO (07:39)
[2021-08-04 08:00] VITALS: BP 141/63
[2021-08-04] MEDS: amLODIPine 5 MG TAB PO SCH (08:10)
[2021-08-04] MEDS: MAG SULF 1GM/100ML (MAG RUN) 1 GM in IV 1 EA IV SCH ×2 (08:10→09:42)
[2021-08-04] MEDS: ACETAMINOPHEN TAB 650MG DOSE (2X325MG) PO PRN ×2 (08:17→20:47)
[2021-08-04] MEDS: HEPARIN DRIP 25,000 UNITS in IV 1 EA IV SCH (08:22)
[2021-08-04] MEDS: APIXABAN 5 MG TAB (ELIQUIS) PO SCH ×2 (14:17→20:47)
[2021-08-04 14:56] LABS: INR 0.97; PROTHROMBIN TIME 13.3 SECONDS (12.7-14.5)
[2021-08-04 14:57] LABS: PARTIAL THROMBOPLASTIN TIME 35.3 SECONDS (25.9-37.0)
[2021-08-04 16:32] VITALS: BP 123/58
[2021-08-04 20:14] VITALS: BP 122/57
[2021-08-04] MEDS: VANCOMYCIN HCL 750 MG, VIAL MATE ADAPTER 1 EACH in NS 250 ML IV SCH (20:47)
[2021-08-04 23:50] VITALS: BP 126/56
[2021-08-05 03:55] VITALS: BP 126/60
[2021-08-05] MEDS ORDERED: PIPERACILLIN/TAZOBACTAM SOD 2.25 GM in D5W MINI-BAG PLUS 50 ML IV SCH (04:00)
[2021-08-05] MEDS: ACETAMINOPHEN TAB 650MG DOSE (2X325MG) PO PRN (05:21)
[2021-08-05] MEDS: LEVOTHYROXINE 88MCG TABLET (0.088 MG) PO SCH (05:21)
[2021-08-05] MEDS: INSULIN LISPRO (NovoLOG) PER UNIT SC SCH (07:30)
[2021-08-05 07:31] LABS: BASO # 0.1 10^3/uL (0.0-0.2); BASO % 1.3 % (0.0-1.0); EOS # 0.3 10^3/uL (0.0-0.5); EOS % 2.8 % (0.0-3.0); HEMATOCRIT 34.4 % (36.0-47.0); HEMOGLOBIN 11.6 g/dl (12.0-15.5); LYMPH # 0.7 10^3/uL (1.5-5.0); MEAN CORPUSCULAR HEMOGLOBIN 29.8 pg (27.0-33.0); MEAN CORPUSCULAR HGB CONC 33.7 g/dl (32.0-36.5); MEAN CORPUSCULAR VOLUME 88.4 fl (80.0-96.0); MONO # 1.2 10^3/uL (0.0-0.8); MONO % 12.7 % (2.0-8.0); NEUTROPHILS # 7.2 10^3/uL (1.5-8.5); NEUTROPHILS % 75.4 % (36.0-66.0); PLATELET COUNT, AUTOMATED 305 10^3/uL (150-450); RED BLOOD COUNT 3.89 10^6/uL (4.00-5.40); WHITE BLOOD COUNT 9.6 10^3/uL (4.0-10.0)
[2021-08-05 07:32] VITALS: BP 136/63
[2021-08-05 07:47] LABS: C REACTIVE PROTEIN QUANTITATIV 1.45 MG/DL (0.00-0.30); CALCIUM LEVEL 7.6 MG/DL (8.8-10.2); CREATININE FOR GFR 1.28 MG/DL (0.55-1.30); MAGNESIUM LEVEL 1.7 MG/DL (1.8-2.4); POTASSIUM SERUM 3.1 MEQ/L (3.5-5.1)
[2021-08-05 08:40] VITALS: BP 136/63
[2021-08-05] MEDS: APIXABAN 5 MG TAB (ELIQUIS) PO SCH (08:40)
[2021-08-05] MEDS: amLODIPine 5 MG TAB PO SCH (08:40)
[2021-08-05] MEDS ORDERED: MAGNESIUM OXIDE 400MG TAB (MAG-OX) PO SCH (09:00)
[2021-08-05] MEDS ORDERED: MAG SULF 1GM/100ML (MAG RUN) 1 GM in IV 1 EA IV ONE (09:00)
[2021-08-05] MEDS ORDERED: MAGN400T2 PO (09:07)
[2021-08-05] MEDS ORDERED: CEFD300C41 PO (09:07)
[2021-08-05] MEDS ORDERED: AMLO1TAB24 PO (09:07)
[2021-08-05] MEDS ORDERED: POTA10CA32 PO (09:07)
[2021-08-05] MEDS ORDERED: POTASSIUM CHLORIDE 10MEQ SR TABLET PO ONE ×2 (09:10→11:00)
[2021-08-09] MEDS ORDERED: APIXABAN 5 MG TAB (ELIQUIS) PO SCH (09:00)
== END 2021-08-05 11:09 | disposition home or self-care (01) | DRG 299 ==
LOC: M ED 13:53 → M ED INP 08-03 03:10 → ENRESERV 08-03 04:31 → M MS5PR 08-03 06:25 → M PCU 08-03 07:58
PROVIDERS: ADMIT Family Medicine; ATTEND Internal Medicine Nephrology
DX: I82.451 Acute embolism and thrombosis of right peroneal vein (principal); I26.99 Other pulmonary embolism without acute cor pulmonale; L97.518 Non-pressure chronic ulcer of other part of right foot with other specified severity; L97.918 Non-pressure chronic ulcer of unspecified part of right lower leg with other specified severity; L03.115 Cellulitis of right lower limb; N17.9 Acute kidney failure, unspecified; E11.621 Type 2 diabetes mellitus with foot ulcer; I12.9 Hypertensive chronic kidney disease with stage 1 through stage 4 chronic kidney disease, or unspecified chronic kidney disease; E78.5 Hyperlipidemia, unspecified; E11.42 Type 2 diabetes mellitus with diabetic polyneuropathy; Z66 Do not resuscitate; Z98.41 Cataract extraction status, right eye; Z98.42 Cataract extraction status, left eye; Z90.49 Acquired absence of other specified parts of digestive tract; Z87.891 Personal history of nicotine dependence; I08.0 Rheumatic disorders of both mitral and aortic valves; E11.622 Type 2 diabetes mellitus with other skin ulcer; Z79.01 Long term (current) use of anticoagulants; Z79.899 Other long term (current) drug therapy; E11.51 Type 2 diabetes mellitus with diabetic peripheral angiopathy without gangrene; N18.30 Chronic kidney disease, stage 3 unspecified; E11.22 Type 2 diabetes mellitus with diabetic chronic kidney disease; E03.9 Hypothyroidism, unspecified; I70.232 Atherosclerosis of native arteries of right leg with ulceration of calf; I70.235 Atherosclerosis of native arteries of right leg with ulceration of other part of foot

== ENCOUNTER → 2021-08-08 | Outpatient (POV) | payer MEDICARE, OTHER ==
[~2021-08-08] VITALS: Ht 152.4 cm; Wt 57.5 kg
[~2021-08-08] MED LIST changes: +AMLO1TAB24 PO; +CEFD300C41 PO; +ELIQ5TAB PO; +MAGN400T2 PO; +MAGN400T35 PO; +POTA10CA32 PO; +PROBCAP14 PO
[2021-08-08 10:50] VITALS: BP 137/62
== END ==
LOC: M IRPOV 10:39
PROVIDERS: ATTEND Radiology Diagnostic Radiology
DX: I70.261 Atherosclerosis of native arteries of extremities with gangrene, right leg (principal); I70.221 Atherosclerosis of native arteries of extremities with rest pain, right leg; I70.92 Chronic total occlusion of artery of the extremities; I96 Gangrene, not elsewhere classified; L97.819 Non-pressure chronic ulcer of other part of right lower leg with unspecified severity; R22.41 Localized swelling, mass and lump, right lower limb; Z87.891 Personal history of nicotine dependence

== ENCOUNTER 2021-08-12 18:00 | Inpatient (IN) | payer MEDICARE, OTHER ==
[~2021-08-12] VITALS: Ht 167.6 cm; Wt 55.8 kg
[~2021-08-12 18:00] MED LIST changes: -MAGN400T35 PO; -PROBCAP14 PO
[2021-08-12] MEDS ORDERED: ACETAMINOPHEN *IV* 1,000 MG in IV 1 EA IV ONE (18:40)
[2021-08-12] MEDS ORDERED: PANTOPRAZOLE 40MG VIAL IV ONE (18:40)
[2021-08-12] MEDS ORDERED: LR 500 ML IV ONE (18:45)
[2021-08-12 18:55] LABS: INR 2.34
[2021-08-12 19:03] LABS: CK-MB VALUE MASS < 1.0 NG/ML (<3.6); CPK CREATINE PHOSPHOKINASE 28 U/L (26-192); MB/CK RELATIVE INDEX 3.57 (< OR =4)
[2021-08-12 19:07] LABS: ALBUMIN 2.7 GM/DL (3.2-5.2); BILIRUBIN,TOTAL 0.4 MG/DL (0.2-1.0); CALCIUM LEVEL 8.8 MG/DL (8.8-10.2); CREATININE FOR GFR 1.94 MG/DL (0.55-1.30); POTASSIUM SERUM 4.8 MEQ/L (3.5-5.1); TOTAL PROTEIN 5.5 GM/DL (6.4-8.2)
[2021-08-12 19:25] LABS: BASO # 0.1 10^3/uL (0.0-0.2); BASO % 0.7 % (0.0-1.0); EOS # 0.1 10^3/uL (0.0-0.5); EOS % 1.1 % (0.0-3.0); HEMATOCRIT 20.8 % (36.0-47.0); HEMOGLOBIN 6.8 g/dl (12.0-15.5); LYMPH # 0.8 10^3/uL (1.5-5.0); LYMPH % 6.2 % (24.0-44.0); MEAN CORPUSCULAR HEMOGLOBIN 30.8 pg (27.0-33.0); MEAN CORPUSCULAR HGB CONC 32.7 g/dl (32.0-36.5); MEAN CORPUSCULAR VOLUME 94.1 fl (80.0-96.0); MONO # 0.9 10^3/uL (0.0-0.8); MONO % 6.9 % (2.0-8.0); NEUTROPHILS # 10.4 10^3/uL (1.5-8.5); NEUTROPHILS % 83.9 % (36.0-66.0); PLATELET COUNT, AUTOMATED 296 10^3/uL (150-450); RED BLOOD COUNT 2.21 10^6/uL (4.00-5.40); WHITE BLOOD COUNT 12.4 10^3/uL (4.0-10.0)
[2021-08-12] MEDS ORDERED: ELIQ5TAB PO ×2 (19:41→19:42)
[2021-08-12] MEDS ORDERED: FLUID PLACE HOLDER IV ONE (19:45)
[2021-08-12] MEDS ORDERED: PROTHROMBIN COMPLEX CONCEN IV ONE (19:45)
[2021-08-12] MEDS ORDERED: AMLO1TAB24 PO (19:48)
[2021-08-12] MEDS ORDERED: PROBCAP14 PO (19:48)
[2021-08-12] MEDS ORDERED: MAGN400T35 PO (19:48)
[2021-08-12] MEDS ORDERED: HOME MED LIST COMPLETE! XX SCH (19:50)
[2021-08-12] MEDS ORDERED: fentaNYL 100 MCG/2 ML INJECTION As Ordered ONE (20:27)
[2021-08-12] MEDS ORDERED: LIDOCAINE 2% 100MG/5ML SDV (FOR ANES.) As Ordered ONE (20:27)
[2021-08-12] MEDS ORDERED: propofoL 200 MG/20 ML VIAL As Ordered ONE (20:27)
[2021-08-12] MEDS ORDERED: ONDANSETRON 4MG/2ML VIAL As Ordered ONE (20:28)
[2021-08-12] MEDS ORDERED: SUCCINYLCHOLINE 100 MG/5 ML SYRINGE (J0330) As Ordered ONE (20:28)
[2021-08-12] MEDS ORDERED: ROCURONIUM BROMIDE 50 MG/5 ML VIAL As Ordered ONE (20:28)
[2021-08-12] MEDS ORDERED: dexameTHASONE 4 MG/ML 1ML VIAL (J1100 PER 1MG) As Ordered ONE (20:28)
[2021-08-12 20:38] VITALS: BP 136/62
[2021-08-12 20:53] VITALS: BP 163/69
[2021-08-12 21:53] VITALS: BP 135/63
[2021-08-12 22:40] VITALS: BP 118/66
[2021-08-12 23:38] VITALS: BP 160/80
[2021-08-13] VITALS (27 sets, daily range): BP systolic 110–153; BP diastolic 58–79; O2SAT 94–100
[2021-08-13] MEDS ORDERED: LR 500 ML IV ONE
[2021-08-13 04:46] LABS: BASO # 0.1 10^3/uL (0.0-0.2); BASO % 0.8 % (0.0-1.0); EOS # 0.2 10^3/uL (0.0-0.5); EOS % 1.2 % (0.0-3.0); HEMATOCRIT 26.7 % (36.0-47.0); LYMPH # 1.1 10^3/uL (1.5-5.0); LYMPH % 8.5 % (24.0-44.0); MEAN CORPUSCULAR HEMOGLOBIN 30.1 pg (27.0-33.0); MEAN CORPUSCULAR HGB CONC 33.3 g/dl (32.0-36.5); MEAN CORPUSCULAR VOLUME 90.2 fl (80.0-96.0); MONO # 1.1 10^3/uL (0.0-0.8); MONO % 8.3 % (2.0-8.0); NEUTROPHILS # 10.3 10^3/uL (1.5-8.5); NEUTROPHILS % 80.1 % (36.0-66.0); PLATELET COUNT, AUTOMATED 229 10^3/uL (150-450); RED BLOOD COUNT 2.96 10^6/uL (4.00-5.40); WHITE BLOOD COUNT 12.9 10^3/uL (4.0-10.0)
[2021-08-13 04:50] LABS: HEMOGLOBIN 8.9 g/dl (12.0-15.5)
[2021-08-13 05:02] LABS: INR 2.19; PROTHROMBIN TIME 24.7 SECONDS (12.7-14.5)
[2021-08-13 05:12] LABS: ALBUMIN 2.4 GM/DL (3.2-5.2); BILIRUBIN,TOTAL 1.7 MG/DL (0.2-1.0); CALCIUM LEVEL 8.7 MG/DL (8.8-10.2); CREATININE FOR GFR 1.66 MG/DL (0.55-1.30); GLOMERULAR FILTRATION RATE 31.1 (>32); POTASSIUM SERUM 3.8 MEQ/L (3.5-5.1); TOTAL PROTEIN 5.2 GM/DL (6.4-8.2)
[2021-08-13] MEDS: PANTOPRAZOLE 40MG VIAL IV SCH ×2 (08:55→20:31)
[2021-08-13] MEDS ORDERED: GLYCOPYRROLATE INJ 0.2 MG/ML 2 ML VIAL As Ordered ONE (10:30)
[2021-08-13] MEDS ORDERED: NS 1,000 ML IV SCH (10:45)
[2021-08-13] MEDS ORDERED: ONDANSETRON 4MG/2ML VIAL IV PRN (10:45)
[2021-08-13] MEDS: SUCRALFATE SUSP 1GM/10ML UD PO SCH ×2 (11:43→17:23)
[2021-08-13] MEDS ORDERED: HEPARIN SOD (PORCINE) 5000UNITS/ML 1ML VIAL/SYRINGE IV PRN (17:35)
[2021-08-13] MEDS ORDERED: HEPARIN DRIP 25,000 UNITS in IV 1 EA IV SCH (18:00)
[2021-08-13 19:08] LABS: HEMATOCRIT 25.3 % (36.0-47.0); HEMOGLOBIN 8.4 g/dl (12.0-15.5)
[2021-08-13] MEDS ORDERED: carisoprodoL 350 MG TAB PO PRN (20:45)
[2021-08-13] MEDS: ACETAMINOPHEN TAB 650MG DOSE (2X325MG) PO PRN (21:07)
[2021-08-14] VITALS (22 sets, daily range): BP systolic 109–165; BP diastolic 48–85; O2SAT 94–100
[2021-08-14 00:12] LABS: HEMATOCRIT 22.6 % (36.0-47.0); HEMOGLOBIN 7.7 g/dl (12.0-15.5)
[2021-08-14] MEDS: SUCRALFATE SUSP 1GM/10ML UD PO SCH ×5 (00:15→23:41)
[2021-08-14 05:07] LABS: BASO # 0.1 10^3/uL (0.0-0.2); EOS # 0.4 10^3/uL (0.0-0.5); EOS % 4.6 % (0.0-3.0); HEMATOCRIT 21.6 % (36.0-47.0); HEMOGLOBIN 7.3 g/dl (12.0-15.5); LYMPH # 1.1 10^3/uL (1.5-5.0); LYMPH % 12.7 % (24.0-44.0); MEAN CORPUSCULAR HEMOGLOBIN 30.8 pg (27.0-33.0); MEAN CORPUSCULAR HGB CONC 33.8 g/dl (32.0-36.5); MEAN CORPUSCULAR VOLUME 91.1 fl (80.0-96.0); MONO # 0.7 10^3/uL (0.0-0.8); MONO % 8.4 % (2.0-8.0); NEUTROPHILS # 6.1 10^3/uL (1.5-8.5); NEUTROPHILS % 72.8 % (36.0-66.0); PLATELET COUNT, AUTOMATED 203 10^3/uL (150-450); RED BLOOD COUNT 2.37 10^6/uL (4.00-5.40); WHITE BLOOD COUNT 8.3 10^3/uL (4.0-10.0)
[2021-08-14 05:20] LABS: INR 1.35; PROTHROMBIN TIME 17.1 SECONDS (12.7-14.5)
[2021-08-14 05:21] LABS: PARTIAL THROMBOPLASTIN TIME 35.5 SECONDS (25.9-37.0)
[2021-08-14 05:50] LABS: ALBUMIN 2.3 GM/DL (3.2-5.2); BILIRUBIN,TOTAL 0.4 MG/DL (0.2-1.0); CREATININE FOR GFR 1.46 MG/DL (0.55-1.30); GLOMERULAR FILTRATION RATE 36.1 (>32); POTASSIUM SERUM 3.3 MEQ/L (3.5-5.1); TOTAL PROTEIN 4.7 GM/DL (6.4-8.2)
[2021-08-14] MEDS ORDERED: FUROSEMIDE 20MG/2ML VIAL (J1940) IV ONE (09:00)
[2021-08-14] MEDS: PANTOPRAZOLE 40MG VIAL IV SCH ×2 (09:02→19:49)
[2021-08-14] MEDS ORDERED: POTASSIUM CHLORIDE 10MEQ SR TABLET PO ONE (14:15)
[2021-08-14] MEDS: ACETAMINOPHEN TAB 650MG DOSE (2X325MG) PO PRN ×2 (16:15→23:41)
[2021-08-14 17:40] LABS: HEMOGLOBIN 11.1 g/dl (12.0-15.5)
[2021-08-15] VITALS: BP 133/61
[2021-08-15 00:18] LABS: HEMATOCRIT 31.6 % (36.0-47.0); HEMOGLOBIN 11.1 g/dl (12.0-15.5)
[2021-08-15 04:00] VITALS: BP 119/56
[2021-08-15 05:54] LABS: BASO # 0.1 10^3/uL (0.0-0.2); BASO % 1.4 % (0.0-1.0); EOS # 0.4 10^3/uL (0.0-0.5); EOS % 3.9 % (0.0-3.0); HEMATOCRIT 29.4 % (36.0-47.0); HEMOGLOBIN 10.2 g/dl (12.0-15.5); LYMPH # 1.1 10^3/uL (1.5-5.0); LYMPH % 11.7 % (24.0-44.0); MEAN CORPUSCULAR HEMOGLOBIN 30.7 pg (27.0-33.0); MEAN CORPUSCULAR HGB CONC 34.7 g/dl (32.0-36.5); MEAN CORPUSCULAR VOLUME 88.6 fl (80.0-96.0); MONO # 0.9 10^3/uL (0.0-0.8); MONO % 9.2 % (2.0-8.0); NEUTROPHILS % 72.8 % (36.0-66.0); PLATELET COUNT, AUTOMATED 203 10^3/uL (150-450); RED BLOOD COUNT 3.32 10^6/uL (4.00-5.40); WHITE BLOOD COUNT 9.6 10^3/uL (4.0-10.0)
[2021-08-15 06:09] LABS: INR 1.07; PROTHROMBIN TIME 14.3 SECONDS (12.7-14.5)
[2021-08-15] MEDS: SUCRALFATE SUSP 1GM/10ML UD PO SCH ×4 (06:20→23:40)
[2021-08-15 06:27] LABS: ALBUMIN 2.3 GM/DL (3.2-5.2); CALCIUM LEVEL 7.9 MG/DL (8.8-10.2); CREATININE FOR GFR 1.58 MG/DL (0.55-1.30); GLOMERULAR FILTRATION RATE 32.9 (>32); POTASSIUM SERUM 3.5 MEQ/L (3.5-5.1); TOTAL PROTEIN 4.7 GM/DL (6.4-8.2)
[2021-08-15] MEDS: PANTOPRAZOLE 40MG VIAL IV SCH ×2 (07:55→20:36)
[2021-08-15 08:00] VITALS: BP 146/77
[2021-08-15] MEDS: ACETAMINOPHEN TAB 650MG DOSE (2X325MG) PO PRN ×2 (09:08→23:52)
[2021-08-15] MEDS: GABAPENTIN 100 MG CAP PO SCH ×2 (10:27→20:36)
[2021-08-15 11:13] LABS: HEMATOCRIT 32.2 % (36.0-47.0)
[2021-08-15 12:00] VITALS: BP 129/61
[2021-08-15 16:00] VITALS: BP 114/62
[2021-08-15 18:08] LABS: HEMATOCRIT 31.4 % (36.0-47.0); HEMOGLOBIN 10.6 g/dl (12.0-15.5)
[2021-08-15 19:49] VITALS: BP 122/60
[2021-08-16 00:19] VITALS: BP 112/53
[2021-08-16 04:23] VITALS: BP 127/57
[2021-08-16 05:37] LABS: BASO # 0.1 10^3/uL (0.0-0.2); EOS # 0.3 10^3/uL (0.0-0.5); EOS % 3.3 % (0.0-3.0); HEMOGLOBIN 10.5 g/dl (12.0-15.5); LYMPH # 1.4 10^3/uL (1.5-5.0); MEAN CORPUSCULAR HEMOGLOBIN 30.5 pg (27.0-33.0); MEAN CORPUSCULAR HGB CONC 33.9 g/dl (32.0-36.5); MEAN CORPUSCULAR VOLUME 90.1 fl (80.0-96.0); MONO # 0.9 10^3/uL (0.0-0.8); MONO % 9.6 % (2.0-8.0); NEUTROPHILS # 6.8 10^3/uL (1.5-8.5); PLATELET COUNT, AUTOMATED 226 10^3/uL (150-450); RED BLOOD COUNT 3.44 10^6/uL (4.00-5.40); WHITE BLOOD COUNT 9.7 10^3/uL (4.0-10.0)
[2021-08-16 06:05] LABS: INR 0.9; PROTHROMBIN TIME 12.6 SECONDS (12.7-14.5)
[2021-08-16] MEDS: SUCRALFATE SUSP 1GM/10ML UD PO SCH ×3 (06:07→18:07)
[2021-08-16 06:10] LABS: ALBUMIN 2.4 GM/DL (3.2-5.2); BILIRUBIN,TOTAL 0.5 MG/DL (0.2-1.0); CALCIUM LEVEL 7.8 MG/DL (8.8-10.2); CREATININE FOR GFR 1.51 MG/DL (0.55-1.30); GLOMERULAR FILTRATION RATE 34.7 (>32); POTASSIUM SERUM 3.3 MEQ/L (3.5-5.1)
[2021-08-16 08:00] VITALS: BP 118/58
[2021-08-16] MEDS: ACETAMINOPHEN TAB 650MG DOSE (2X325MG) PO PRN ×2 (08:43→21:23)
[2021-08-16] MEDS: GABAPENTIN 100 MG CAP PO SCH ×2 (08:43→21:23)
[2021-08-16] MEDS: PANTOPRAZOLE 40MG VIAL IV SCH ×2 (08:43→21:23)
[2021-08-16 12:00] VITALS: BP 136/66
[2021-08-16] MEDS ORDERED: HEPARIN SOD (PORCINE) 5000UNITS/ML 1ML VIAL/SYRINGE IV PRN (13:40)
[2021-08-16] MEDS ORDERED: POTASSIUM CHLORIDE 10MEQ SR TABLET PO ONE (13:45)
[2021-08-16 14:00] VITALS: BP 126/74
[2021-08-16 15:08] LABS: HEMOGLOBIN 11.1 g/dl (12.0-15.5); MEAN CORPUSCULAR HEMOGLOBIN 30.4 pg (27.0-33.0); MEAN CORPUSCULAR HGB CONC 33.6 g/dl (32.0-36.5); MEAN CORPUSCULAR VOLUME 90.4 fl (80.0-96.0); PLATELET COUNT, AUTOMATED 244 10^3/uL (150-450); RED BLOOD COUNT 3.65 10^6/uL (4.00-5.40); WHITE BLOOD COUNT 13.3 10^3/uL (4.0-10.0)
[2021-08-16] MEDS: HEPARIN DRIP 25,000 UNITS in IV 1 EA IV SCH (16:27)
[2021-08-16 19:41] LABS: HEMATOCRIT 31.5 % (36.0-47.0); HEMOGLOBIN 10.6 g/dl (12.0-15.5); MEAN CORPUSCULAR HEMOGLOBIN 29.9 pg (27.0-33.0); MEAN CORPUSCULAR HGB CONC 33.7 g/dl (32.0-36.5); PLATELET COUNT, AUTOMATED 245 10^3/uL (150-450); RED BLOOD COUNT 3.54 10^6/uL (4.00-5.40)
[2021-08-16 20:00] VITALS: BP 96/54
[2021-08-16 22:45] LABS: HEMATOCRIT 29.1 % (36.0-47.0); HEMOGLOBIN 9.9 g/dl (12.0-15.5); MEAN CORPUSCULAR HEMOGLOBIN 30.2 pg (27.0-33.0); MEAN CORPUSCULAR VOLUME 88.7 fl (80.0-96.0); PLATELET COUNT, AUTOMATED 232 10^3/uL (150-450); RED BLOOD COUNT 3.28 10^6/uL (4.00-5.40); WHITE BLOOD COUNT 12.2 10^3/uL (4.0-10.0)
[2021-08-17] VITALS (7 sets, daily range): BP systolic 86–131; BP diastolic 50–75
[2021-08-17] MEDS: SUCRALFATE SUSP 1GM/10ML UD PO SCH ×5 (00:51→23:13)
[2021-08-17 06:13] LABS: BASO # 0.1 10^3/uL (0.0-0.2); BASO % 0.8 % (0.0-1.0); EOS # 0.3 10^3/uL (0.0-0.5); EOS % 2.4 % (0.0-3.0); HEMATOCRIT 31.6 % (36.0-47.0); HEMOGLOBIN 10.2 g/dl (12.0-15.5); LYMPH # 1.5 10^3/uL (1.5-5.0); LYMPH % 13.9 % (24.0-44.0); MEAN CORPUSCULAR HEMOGLOBIN 29.3 pg (27.0-33.0); MEAN CORPUSCULAR HGB CONC 32.3 g/dl (32.0-36.5); MEAN CORPUSCULAR VOLUME 90.8 fl (80.0-96.0); MONO # 1.3 10^3/uL (0.0-0.8); MONO % 12.2 % (2.0-8.0); NEUTROPHILS # 7.2 10^3/uL (1.5-8.5); NEUTROPHILS % 68.3 % (36.0-66.0); PLATELET COUNT, AUTOMATED 237 10^3/uL (150-450); RED BLOOD COUNT 3.48 10^6/uL (4.00-5.40); WHITE BLOOD COUNT 10.5 10^3/uL (4.0-10.0)
[2021-08-17 06:30] LABS: INR 0.99; PROTHROMBIN TIME 13.5 SECONDS (12.7-14.5)
[2021-08-17 06:32] LABS: PARTIAL THROMBOPLASTIN TIME 90.4 SECONDS (25.9-37.0)
[2021-08-17 06:33] LABS: ALBUMIN 2.2 GM/DL (3.2-5.2); BILIRUBIN,TOTAL 0.4 MG/DL (0.2-1.0); CALCIUM LEVEL 7.8 MG/DL (8.8-10.2); CREATININE FOR GFR 1.5 MG/DL (0.55-1.30); POTASSIUM SERUM 3.7 MEQ/L (3.5-5.1); TOTAL PROTEIN 4.8 GM/DL (6.4-8.2)
[2021-08-17] MEDS: GABAPENTIN 100 MG CAP PO SCH ×2 (09:28→20:53)
[2021-08-17] MEDS: PANTOPRAZOLE 40MG VIAL IV SCH ×2 (09:28→20:53)
[2021-08-17] MEDS: ACETAMINOPHEN TAB 650MG DOSE (2X325MG) PO PRN ×3 (09:28→23:13)
[2021-08-17 12:33] LABS: INR 0.97; PROTHROMBIN TIME 13.3 SECONDS (12.7-14.5)
[2021-08-17 12:35] LABS: PARTIAL THROMBOPLASTIN TIME 92.9 SECONDS (25.9-37.0)
[2021-08-17 14:11] LABS: HEMATOCRIT 32.8 % (36.0-47.0); HEMOGLOBIN 11.1 g/dl (12.0-15.5); MEAN CORPUSCULAR HEMOGLOBIN 30.5 pg (27.0-33.0); MEAN CORPUSCULAR HGB CONC 33.8 g/dl (32.0-36.5); MEAN CORPUSCULAR VOLUME 90.1 fl (80.0-96.0); PLATELET COUNT, AUTOMATED 260 10^3/uL (150-450); RED BLOOD COUNT 3.64 10^6/uL (4.00-5.40); WHITE BLOOD COUNT 13.2 10^3/uL (4.0-10.0)
[2021-08-17 19:41] LABS: HEMATOCRIT 32.4 % (36.0-47.0); HEMOGLOBIN 10.9 g/dl (12.0-15.5); MEAN CORPUSCULAR HEMOGLOBIN 30.4 pg (27.0-33.0); MEAN CORPUSCULAR HGB CONC 33.6 g/dl (32.0-36.5); MEAN CORPUSCULAR VOLUME 90.5 fl (80.0-96.0); PLATELET COUNT, AUTOMATED 275 10^3/uL (150-450); RED BLOOD COUNT 3.58 10^6/uL (4.00-5.40); WHITE BLOOD COUNT 13.3 10^3/uL (4.0-10.0)
[2021-08-18] VITALS: BP 98/46
[2021-08-18] MEDS: HEPARIN DRIP 25,000 UNITS in IV 1 EA IV SCH (00:31)
[2021-08-18 04:00] VITALS: BP 94/50
[2021-08-18] MEDS: SUCRALFATE SUSP 1GM/10ML UD PO SCH ×2 (05:18→12:24)
[2021-08-18] MEDS: ACETAMINOPHEN TAB 650MG DOSE (2X325MG) PO PRN (06:03)
[2021-08-18 06:56] LABS: INR 0.91; PROTHROMBIN TIME 12.7 SECONDS (12.7-14.5)
[2021-08-18 06:57] LABS: PARTIAL THROMBOPLASTIN TIME 46.2 SECONDS (25.9-37.0)
[2021-08-18 08:27] VITALS: BP 117/57
[2021-08-18] MEDS: PANTOPRAZOLE 40MG VIAL IV SCH (08:54)
[2021-08-18] MEDS: GABAPENTIN 100 MG CAP PO SCH (08:54)
[2021-08-18] MEDS ORDERED: GABA-1171 PO (09:21)
[2021-08-18] MEDS ORDERED: SUCR1ORA PO (09:21)
[2021-08-18] MEDS ORDERED: PANT40TA29 PO (09:21)
[2021-08-18 09:28] LABS: HEMATOCRIT 33.1 % (36.0-47.0); HEMOGLOBIN 10.8 g/dl (12.0-15.5); MEAN CORPUSCULAR HGB CONC 32.6 g/dl (32.0-36.5); MEAN CORPUSCULAR VOLUME 91.9 fl (80.0-96.0); PLATELET COUNT, AUTOMATED 284 10^3/uL (150-450); WHITE BLOOD COUNT 13.1 10^3/uL (4.0-10.0)
[2021-08-18] MEDS ORDERED: APIXABAN 5 MG TAB (ELIQUIS) PO SCH (10:00)
[2021-08-18 11:43] VITALS: BP 129/59
== END 2021-08-18 15:01 | disposition home health service (06) | DRG 813 ==
LOC: EDBD 18:00 → M ED 18:00 → M ED INP 21:19 → ENRESERV 22:42 → M PCU 23:38
PROVIDERS: ADMIT Family Medicine; ATTEND Internal Medicine
PROC: 0DB78ZX Excision of Stomach, Pylorus, Via Natural or Artificial Opening Endoscopic, Diagnostic (ICD-10-PCS; principal; 2021-08-12)
PROC: 30233N1 Transfusion of Nonautologous Red Blood Cells into Peripheral Vein, Percutaneous Approach (ICD-10-PCS; 2021-08-12)
DX: D68.32 Hemorrhagic disorder due to extrinsic circulating anticoagulants (principal); K57.91 Diverticulosis of intestine, part unspecified, without perforation or abscess with bleeding; D62 Acute posthemorrhagic anemia; L97.919 Non-pressure chronic ulcer of unspecified part of right lower leg with unspecified severity; E11.51 Type 2 diabetes mellitus with diabetic peripheral angiopathy without gangrene; I12.9 Hypertensive chronic kidney disease with stage 1 through stage 4 chronic kidney disease, or unspecified chronic kidney disease; K52.9 Noninfective gastroenteritis and colitis, unspecified; I08.0 Rheumatic disorders of both mitral and aortic valves; N18.30 Chronic kidney disease, stage 3 unspecified; K44.9 Diaphragmatic hernia without obstruction or gangrene; K31.89 Other diseases of stomach and duodenum; R19.5 Other fecal abnormalities; E11.22 Type 2 diabetes mellitus with diabetic chronic kidney disease; E11.621 Type 2 diabetes mellitus with foot ulcer; K22.2 Esophageal obstruction; Z66 Do not resuscitate; L97.519 Non-pressure chronic ulcer of other part of right foot with unspecified severity; E78.5 Hyperlipidemia, unspecified; I70.235 Atherosclerosis of native arteries of right leg with ulceration of other part of foot; E11.42 Type 2 diabetes mellitus with diabetic polyneuropathy; Z98.41 Cataract extraction status, right eye; Z98.42 Cataract extraction status, left eye; Z90.49 Acquired absence of other specified parts of digestive tract; Z87.891 Personal history of nicotine dependence; Z79.01 Long term (current) use of anticoagulants; Z79.899 Other long term (current) drug therapy; Z86.711 Personal history of pulmonary embolism; Z86.718 Personal history of other venous thrombosis and embolism

== ENCOUNTER → 2021-09-05 | Outpatient (REF) | payer MEDICARE, OTHER ==
[~2021-09-05] MED LIST changes: +GABA-1171 PO; +MAGN400T35 PO; +PANT40TA29 PO; +PROBCAP14 PO; +SUCR1ORA PO
== END ==
LOC: M SHH 14:18
PROVIDERS: ATTEND Physician Assistant
DX: Z01.818 Encounter for other preprocedural examination (principal); D69.8 Other specified hemorrhagic conditions

== ENCOUNTER 2021-09-11 20:38 | Inpatient (IN) | payer MEDICARE, OTHER ==
[~2021-09-11] VITALS: Ht 152.4 cm; Wt 55.9 kg
[~2021-09-11 20:38] MED LIST changes: -CHOL4POW15 PO; +CHOL4POW26 PO
[2021-09-11] MEDS ORDERED: NS 500 ML IV ONE (21:25)
[2021-09-11 21:30] LABS: BASO # 0.1 10^3/uL (0.0-0.2); BASO % 0.5 % (0.0-1.0); EOS % 0.2 % (0.0-3.0); HEMOGLOBIN 8.6 g/dl (12.0-15.5); LYMPH # 0.4 10^3/uL (1.5-5.0); LYMPH % 2.6 % (24.0-44.0); MEAN CORPUSCULAR HEMOGLOBIN 31.6 pg (27.0-33.0); MEAN CORPUSCULAR HGB CONC 33.1 g/dl (32.0-36.5); MEAN CORPUSCULAR VOLUME 95.6 fl (80.0-96.0); MONO # 0.7 10^3/uL (0.0-0.8); NEUTROPHILS # 13.4 10^3/uL (1.5-8.5); NEUTROPHILS % 90.6 % (36.0-66.0); PLATELET COUNT, AUTOMATED 355 10^3/uL (150-450); RED BLOOD COUNT 2.72 10^6/uL (4.00-5.40); WHITE BLOOD COUNT 14.8 10^3/uL (4.0-10.0)
[2021-09-11 21:35] LABS: INR 1.74; PROTHROMBIN TIME 20.8 SECONDS (12.7-14.5)
[2021-09-11 21:36] LABS: PARTIAL THROMBOPLASTIN TIME 48.9 SECONDS (25.9-37.0)
[2021-09-11 21:43] LABS: CK-MB VALUE MASS 1.8 NG/ML (<3.6); MB/CK RELATIVE INDEX 1.44 (< OR =4)
[2021-09-11 21:47] LABS: ALBUMIN 2.8 GM/DL (3.2-5.2); ALT/SGPT 14 U/L (12-78); BILIRUBIN,DIRECT < 0.1 MG/DL (0.0-0.2); BILIRUBIN,TOTAL 0.4 MG/DL (0.2-1.0); BLOOD UREA NITROGEN 31 MG/DL (7-18); CALCIUM LEVEL 8.4 MG/DL (8.8-10.2); CARBON DIOXIDE LEVEL 19 MEQ/L (21-32); CHLORIDE LEVEL 110 MEQ/L (98-107); CREATININE FOR GFR 2.14 MG/DL (0.55-1.30); GLOMERULAR FILTRATION RATE 23.2 (>32); GLUCOSE, FASTING 122 MG/DL (70-100); LIPASE 161 U/L (73-393); POTASSIUM SERUM 2.8 MEQ/L (3.5-5.1); SODIUM LEVEL 140 MEQ/L (136-145); TOTAL PROTEIN 5.3 GM/DL (6.4-8.2)
[2021-09-11 22:41] LABS: RSV AMPLIFICATION NEGATIVE (NEGATIVE)
[2021-09-11 23:08] LABS: CK-MB VALUE MASS 1.9 NG/ML (<3.6); MB/CK RELATIVE INDEX 1.94 (< OR =4)
[2021-09-11] MEDS ORDERED: POTASSIUM CHLORIDE 10MEQ SR TABLET PO ONE (23:25)
[2021-09-12] MEDS: PANTOPRAZOLE 40MG VIAL IV SCH ×3 (00:55→20:07)
[2021-09-12] MEDS ORDERED: KCL 20MEQ IN D5/NS 1000ML 1,000 ML IV SCH (00:55)
[2021-09-12] MEDS ORDERED: GLUCOSE 4GM CHEW TABLET PO PRN (01:05)
[2021-09-12] MEDS ORDERED: GLUCAGON INJ 1MG VIAL SC PRN (01:05)
[2021-09-12] MEDS ORDERED: DEXTROSE 50% 50 ML SYRINGE IV PRN (01:05)
[2021-09-12 01:25] LABS: MAGNESIUM LEVEL 0.9 MG/DL (1.8-2.4); NT-PRO BNP 944 PG/ML (<450)
[2021-09-12] MEDS ORDERED: PANT40TA29 PO (01:46)
[2021-09-12] MEDS ORDERED: ACET-716 PO (01:46)
[2021-09-12] MEDS ORDERED: CARA1TAB6 PO (01:46)
[2021-09-12] MEDS ORDERED: GABA-1171 PO (01:46)
[2021-09-12] MEDS ORDERED: HOME MED LIST COMPLETE! XX SCH (01:50)
[2021-09-12 02:18] VITALS: BP 112/56
[2021-09-12] MEDS: MAG SULF 1GM/100ML (MAG RUN) 1 GM in IV 1 EA IV SCH ×4 (02:35→06:40)
[2021-09-12 04:49] LABS: BASO # 0.1 10^3/uL (0.0-0.2); BASO % 0.4 % (0.0-1.0); EOS # 0.1 10^3/uL (0.0-0.5); EOS % 0.7 % (0.0-3.0); HEMATOCRIT 23.6 % (36.0-47.0); HEMATOCRIT 24.1 % (36.0-47.0); HEMOGLOBIN 7.8 g/dl (12.0-15.5); HEMOGLOBIN 7.9 g/dl (12.0-15.5); LYMPH # 0.7 10^3/uL (1.5-5.0); LYMPH % 4.8 % (24.0-44.0); MEAN CORPUSCULAR HGB CONC 33.1 g/dl (32.0-36.5); MEAN CORPUSCULAR VOLUME 96.7 fl (80.0-96.0); MONO # 1.1 10^3/uL (0.0-0.8); MONO % 7.3 % (2.0-8.0); NEUTROPHILS % 86.1 % (36.0-66.0); PLATELET COUNT, AUTOMATED 319 10^3/uL (150-450); RED BLOOD COUNT 2.44 10^6/uL (4.00-5.40); WHITE BLOOD COUNT 15.1 10^3/uL (4.0-10.0)
[2021-09-12] MEDS: INSULIN LISPRO (NovoLOG) PER UNIT SC SCH ×4 (06:05→17:27)
[2021-09-12] MEDS: SUCRALFATE 1 GM TAB PO SCH ×4 (06:05→23:54)
[2021-09-12] MEDS ORDERED: MAG SULF 1GM/100ML (MAG RUN) 1 GM in IV 1 EA IV ONE (07:15)
[2021-09-12 08:13] VITALS: BP 115/56
[2021-09-12] MEDS: VITAMIN D 1,000 INTERNATIONAL UNITS TABLET PO SCH (08:49)
[2021-09-12] MEDS: GABAPENTIN 100 MG CAP PO SCH ×2 (08:49→20:07)
[2021-09-12 09:08] LABS: CALCIUM LEVEL 8.1 MG/DL (8.8-10.2); CREATININE FOR GFR 1.85 MG/DL (0.55-1.30); GLOMERULAR FILTRATION RATE 27.5 (>32); PERCENT SATURATION 15.2 % (13.2-45.0); POTASSIUM SERUM 3.5 MEQ/L (3.5-5.1)
[2021-09-12 10:00] LABS: HEMATOCRIT 23.5 % (36.0-47.0); HEMOGLOBIN 7.9 g/dl (12.0-15.5)
[2021-09-12 12:24] VITALS: BP 120/54
[2021-09-12 15:59] LABS: HEMATOCRIT 26.1 % (36.0-47.0); HEMOGLOBIN 8.7 g/dl (12.0-15.5)
[2021-09-12] MEDS ORDERED: LORazepam 2 MG/ML VIAL IV PRN (17:55)
[2021-09-12] MEDS ORDERED: SCOPOLAMINE 1MG TRANSDERMAL PATCH TOP PRN (17:55)
[2021-09-12] MEDS ORDERED: HYOSCYAMINE SULFATE 0.125 MG SUBL TABLET PO PRN (17:55)
[2021-09-12] MEDS ORDERED: ATROPINE SULFATE 1% OP SOLN 2 ML BTL SL PRN (17:55)
[2021-09-12] MEDS ORDERED: FLEET ENEMA PR PRN (17:55)
[2021-09-12] MEDS ORDERED: MORPHINE 2 MG/ML 1ML VIAL IV PRN (17:55)
[2021-09-12] MEDS ORDERED: ONDANSETRON 4MG 2ML VIAL IV PRN (17:55)
[2021-09-12 20:00] VITALS: BP 89/47
[2021-09-12] MEDS: MORPHINE 2 MG/ML 1ML VIAL IV PRN (23:54)
[2021-09-13] MEDS: SUCRALFATE 1 GM TAB PO SCH ×3 (06:35→18:34)
[2021-09-13] MEDS: GABAPENTIN 100 MG CAP PO SCH ×2 (09:12→20:13)
[2021-09-13] MEDS: MORPHINE 2 MG/ML 1ML VIAL IV PRN (09:12)
[2021-09-13] MEDS: PANTOPRAZOLE 40MG VIAL IV SCH ×2 (09:12→20:13)
[2021-09-13] MEDS: VITAMIN D 1,000 INTERNATIONAL UNITS TABLET PO SCH (09:12)
[2021-09-14] MEDS: SUCRALFATE 1 GM TAB PO SCH ×2 (00:17→05:56)
[2021-09-14] MEDS: MORPHINE 2 MG/ML 1ML VIAL IV PRN (00:22)
[2021-09-14] MEDS: MORPHINE 10MG/0.5ML ORAL CONCENTRATE SOLUTION U/D SL PRN (11:31)
[2021-09-15] MEDS: MORPHINE 2 MG/ML 1ML VIAL IV PRN ×2 (09:19→18:34)
[2021-09-15 17:00] VITALS: BP 130/69
[2021-09-15] MEDS: MORPHINE 10MG/0.5ML ORAL CONCENTRATE SOLUTION U/D SL PRN (21:46)
[2021-09-16] MEDS: MORPHINE 10MG/0.5ML ORAL CONCENTRATE SOLUTION U/D SL PRN (09:25)
[2021-09-17] MEDS: MORPHINE 10MG/0.5ML ORAL CONCENTRATE SOLUTION U/D SL PRN (10:40)
[2021-09-18] MEDS: MORPHINE 10MG/0.5ML ORAL CONCENTRATE SOLUTION U/D SL PRN (21:24)
[2021-09-19] MEDS ORDERED: MORP1SOL5 PO ×2 (07:58→09:47)
[2021-09-19] MEDS ORDERED: HYOS125TA PO (07:58)
[2021-09-19] MEDS ORDERED: ATIV1TAB10 PO ×2 (07:58→09:47)
[2021-09-19] MEDS: MORPHINE 10MG/0.5ML ORAL CONCENTRATE SOLUTION U/D SL PRN (09:06)
== END 2021-09-19 10:03 | disposition hospice, inpatient (51) | DRG 378 ==
LOC: M ED 20:38 → EDBD 20:38 → M ED INP 09-12 00:53 → M PCU 09-12 02:06 → M MSPAV 09-13 18:23
PROVIDERS: ADMIT Family Medicine; ATTEND Internal Medicine
PROC: 30233N1 Transfusion of Nonautologous Red Blood Cells into Peripheral Vein, Percutaneous Approach (ICD-10-PCS; principal; 2021-09-12)
DX: K92.2 Gastrointestinal hemorrhage, unspecified (principal); K56.7 Ileus, unspecified; N17.9 Acute kidney failure, unspecified; I31.3 Pericardial effusion (noninflammatory); E11.52 Type 2 diabetes mellitus with diabetic peripheral angiopathy with gangrene; D64.9 Anemia, unspecified; E87.6 Hypokalemia; E83.42 Hypomagnesemia; L97.519 Non-pressure chronic ulcer of other part of right foot with unspecified severity; I73.9 Peripheral vascular disease, unspecified; D72.829 Elevated white blood cell count, unspecified; Z86.711 Personal history of pulmonary embolism; Z86.718 Personal history of other venous thrombosis and embolism; I12.9 Hypertensive chronic kidney disease with stage 1 through stage 4 chronic kidney disease, or unspecified chronic kidney disease; Z66 Do not resuscitate; Z79.01 Long term (current) use of anticoagulants; Z79.899 Other long term (current) drug therapy; E78.00 Pure hypercholesterolemia, unspecified; I25.10 Atherosclerotic heart disease of native coronary artery without angina pectoris; M10.9 Gout, unspecified; E03.9 Hypothyroidism, unspecified; E11.621 Type 2 diabetes mellitus with foot ulcer; Z90.49 Acquired absence of other specified parts of digestive tract; Z98.41 Cataract extraction status, right eye; Z98.42 Cataract extraction status, left eye; Z87.891 Personal history of nicotine dependence; N18.30 Chronic kidney disease, stage 3 unspecified; E11.22 Type 2 diabetes mellitus with diabetic chronic kidney disease; K29.50 Unspecified chronic gastritis without bleeding

== ENCOUNTER → 2022-07-04 | Outpatient (REF) | payer MEDICARE, OTHER ==
[~2022-07-04] MED LIST changes: +ACET-716 PO; +ACET500T15 PO; +ACET650S3 PR; +ARTIDRO4 OU; +ATIV1TAB10 PO; +BISA10SU20 PR; +CARA1TAB6 PO; +CEFT1INJ5 IM; +DOK100TA2 PO; +ENSU1LIQ50 PO; +HYOS125TA PO; +INDA1.253 PO; -INDA125TA PO; +LORA-622 PO; +MILK24002 PO; +MORP1SOL5 PO; +MOUKOT60 MT; +OXYC-517 PO; -POTA10CA32 PO; +POTA10CA33 PO; +PROC25SU24 PR; +TRAN1DIS4 TOP; +ZYPR2.5T2 PO
[2022-07-04 17:29] LABS: BASO # 0.2 10^3/uL (0.0-0.2); BASO % 1.8 % (0.0-1.0); EOS # 0.3 10^3/uL (0.0-0.5); EOS % 2.6 % (0.0-3.0); HEMATOCRIT 35.8 % (36.0-47.0); HEMOGLOBIN 10.9 g/dl (12.0-15.5); LYMPH # 1.2 10^3/uL (1.5-5.0); MEAN CORPUSCULAR HEMOGLOBIN 25.8 pg (27.0-33.0); MEAN CORPUSCULAR HGB CONC 30.4 g/dl (32.0-36.5); MEAN CORPUSCULAR VOLUME 84.8 fl (80.0-96.0); MONO # 0.6 10^3/uL (0.0-0.8); MONO % 5.6 % (2.0-8.0); NEUTROPHILS # 7.6 10^3/uL (1.5-8.5); NEUTROPHILS % 77.2 % (36.0-66.0); PLATELET COUNT, AUTOMATED 234 10^3/uL (150-450); RED BLOOD COUNT 4.22 10^6/uL (4.00-5.40); WHITE BLOOD COUNT 9.9 10^3/uL (4.0-10.0)
[2022-07-04 17:52] LABS: C REACTIVE PROTEIN QUANTITATIV < 0.40 MG/DL (<1.0)
[2022-07-04 17:54] LABS: ALBUMIN 4.1 G/DL (3.2-5.2); ALKALINE PHOSPHATASE 60 U/L (46-116); ALT/SGPT 29 U/L (7.0-40); AST/SGOT 30 U/L (<34); BILIRUBIN,TOTAL 0.2 MG/DL (0.3-1.2); BLOOD UREA NITROGEN 39 MG/DL (9-23); CALCIUM LEVEL 9.2 MG/DL (8.3-10.6); CARBON DIOXIDE LEVEL 21 MMOL/L (20-31); CHLORIDE LEVEL 104 MMOL/L (98-107); CREATININE FOR GFR 1.79 MG/DL (0.55-1.30); GLOMERULAR FILTRATION RATE 28.5 (>32); GLUCOSE, FASTING 136 MG/DL (74-106); POTASSIUM SERUM 4.1 MMOL/L (3.5-5.1); SODIUM LEVEL 136 MMOL/L (136-145); TOTAL PROTEIN 7.6 G/DL (5.7-8.2)
[2022-07-04 17:56] LABS: THYROID STIMULATING HORMONE 141.149 uIU/ML (0.55-4.78)
[2022-07-04 17:58] LABS: ERYTHROCYTE SEDIMENTATION RATE 44 mm/hr (0-30)
== END ==
PROVIDERS: ATTEND Physician Assistant
DX: R41.0 Disorientation, unspecified (principal)

== ENCOUNTER 2022-07-06 20:19 | Emergency (ER) | payer MEDICARE, OTHER ==
[~2022-07-06 20:19] MED LIST changes: -ACET500T15 PO; -ACET650S3 PR; -ARTIDRO4 OU; -BISA10SU20 PR; -CEFT1INJ5 IM; -DOK100TA2 PO; -ENSU1LIQ50 PO; -LORA-622 PO; -MILK24002 PO; -MOUKOT60 MT; -OXYC-517 PO; -PROC25SU24 PR; -TRAN1DIS4 TOP; -ZYPR2.5T2 PO
[2022-07-06] MEDS ORDERED: BOOSTRIX VACCINE (TETANUS/DIPHTH/ACEL. PERTUSSIS) 0.5ML SYR IM ONE (20:40)
[2022-07-06 20:49] VITALS: O2SAT 97
[2022-07-06 20:49] LABS: ABG BASE EXCESS -3.6 (-2.0-2.0); ABG HCO3 22.1 MMOL/L (22.0-26.0); ABG O2 SATURATION 97.1 % (95.0-99.0); ABG PARTIAL PRESSURE CO2 42.5 mmHg (35.0-45.0); ABG PARTIAL PRESSURE O2 96.7 mmHg (75.0-100.0); ABG STANDARD HCO3 21.5 MMOL/L. (22.0-26.0); ABG TOTAL CO2 23.4 MMOL/L (23.0-31.0); ABG pH (ARTERIAL) 7.334 UNITS (7.350-7.450)
[2022-07-06 21:22] LABS: AMPHETAMINES LEVEL URINE NEGATIVE (NEGATIVE); OSMOLALITY SERUM 303 MOSM/KG (280-301)
[2022-07-06 21:23] LABS: BARBITURATES URINE NEGATIVE (NEGATIVE); BENZODIAZEPINES URINE NEGATIVE (NEGATIVE); CANNABINOIDS URINE NEGATIVE (NEGATIVE); COCAINE METABOLITE URINE NEGATIVE (NEGATIVE); METHADONE URINE NEGATIVE (NEGATIVE); OPIATES URINE NEGATIVE (NEGATIVE); PHENCYCLIDINE URINE NEGATIVE (NEGATIVE)
[2022-07-06 21:24] LABS: CK-MB VALUE MASS 5.4 NG/ML (<3.6)
[2022-07-06 21:25] LABS: ETHYL ALCOHOL (ETHANOL) < 0.003 % (0.000-0.010)
[2022-07-06 21:26] LABS: SALICYLATE LEVEL < 3.0 MG/DL (<30)
[2022-07-06 21:27] LABS: ACETAMINOPHEN LEVEL < 2.0 UG/ML (10.0-20.0); CPK CREATINE PHOSPHOKINASE 449 U/L (34-145)
[2022-07-06 21:34] LABS: BASO # 0.1 10^3/uL (0.0-0.2); BASO % 1.2 % (0.0-1.0); EOS # 0.2 10^3/uL (0.0-0.5); EOS % 2.9 % (0.0-3.0); HEMATOCRIT 35.3 % (36.0-47.0); HEMOGLOBIN 10.6 g/dl (12.0-15.5); LYMPH # 1.1 10^3/uL (1.5-5.0); LYMPH % 13.5 % (24.0-44.0); MEAN CORPUSCULAR HEMOGLOBIN 25.9 pg (27.0-33.0); MEAN CORPUSCULAR VOLUME 86.3 fl (80.0-96.0); MONO # 0.5 10^3/uL (0.0-0.8); MONO % 6.5 % (2.0-8.0); NEUTROPHILS # 6.2 10^3/uL (1.5-8.5); NEUTROPHILS % 75.3 % (36.0-66.0); PLATELET COUNT, AUTOMATED 185 10^3/uL (150-450); RED BLOOD COUNT 4.09 10^6/uL (4.00-5.40); WHITE BLOOD COUNT 8.2 10^3/uL (4.0-10.0)
[2022-07-06 21:54] LABS: ALBUMIN 3.9 G/DL (3.2-5.2); ALKALINE PHOSPHATASE 60 U/L (46-116); ALT/SGPT 44 U/L (7.0-40); AST/SGOT 42 U/L (<34); BILIRUBIN,DIRECT < 0.1 MG/DL (<0.4); BILIRUBIN,TOTAL 0.2 MG/DL (0.3-1.2); BLOOD UREA NITROGEN 42 MG/DL (9-23); CALCIUM LEVEL 8.6 MG/DL (8.3-10.6); CARBON DIOXIDE LEVEL 21 MMOL/L (20-31); CHLORIDE LEVEL 110 MMOL/L (98-107); CREATININE FOR GFR 2.04 MG/DL (0.55-1.30); GLOMERULAR FILTRATION RATE 24.5 (>32); GLUCOSE, FASTING 123 MG/DL (74-106); MAGNESIUM LEVEL 1.6 MG/DL (1.8-2.4); POTASSIUM SERUM 3.7 MMOL/L (3.5-5.1); SODIUM LEVEL 142 MMOL/L (136-145); THYROID STIMULATING HORMONE > 150.000 uIU/ML (0.55-4.78); TOTAL PROTEIN 6.9 G/DL (5.7-8.2)
[2022-07-06 22:31] LABS: FREE T4 < 0.10 NG/DL (0.89-1.76)
[2022-07-06] MEDS ORDERED: methylPREDNISolone 40MG 1ML VIAL IV ONE (23:00)
[2022-07-06] MEDS ORDERED: CEFT1INJ5 IM (23:13)
[2022-07-06] MEDS ORDERED: ZYPR2.5T2 PO (23:21)
[2022-07-06] MEDS ORDERED: LORA-622 PO (23:21)
[2022-07-06] MEDS ORDERED: DOK100TA2 PO (23:21)
[2022-07-06] MEDS ORDERED: ACET650S3 PR (23:21)
[2022-07-06] MEDS ORDERED: OXYC-517 PO ×2 (23:21→23:29)
[2022-07-06] MEDS ORDERED: ENSU1LIQ50 PO (23:21)
[2022-07-06] MEDS ORDERED: ACET500T15 PO (23:21)
[2022-07-06] MEDS ORDERED: ARTIDRO4 OU (23:25)
[2022-07-06] MEDS ORDERED: MOUKOT60 MT (23:25)
[2022-07-06] MEDS ORDERED: BISA10SU20 PR (23:25)
[2022-07-06] MEDS ORDERED: MILK24002 PO (23:29)
[2022-07-06] MEDS ORDERED: TRAN1DIS4 TOP (23:31)
[2022-07-06] MEDS ORDERED: PROC25SU24 PR (23:31)
[2022-07-06] MEDS ORDERED: HOME MED LIST COMPLETE! XX SCH (23:35)
[2022-07-06 23:47] LABS: FREE THYROXINE INDEX 0.2 % (1.3-4.8); T UPTAKE 32.5 % (22.5-37.0); THYROXINE (T4) 0.7 UG/DL (4.5-10.9)
[2022-07-07] MEDS ORDERED: LEVOTHYROXINE 100MCG (0.1MG) 5ML SDV PF (SOLUTION FORM) IV ONE
[2022-07-07] MEDS ORDERED: OLANZapine 2.5MG TABLET PO ONE (00:05)
[2022-07-07] MEDS ORDERED: LORazepam 2 MG/ML 1ML VIAL IV STA (00:31)
[2022-07-07 01:45] VITALS: BP 97/47
== END 2022-07-07 01:36 | disposition home or self-care (01) ==
LOC: EDBD 20:19 → M ED 20:19
DX: G93.41 Metabolic encephalopathy (principal); Z87.440 Personal history of urinary (tract) infections; Z79.01 Long term (current) use of anticoagulants; Z79.899 Other long term (current) drug therapy
CPT/HCPCS: 36600; 51701; 70450; 70544; 70551; 71045; 80048; 80076; 80143; 80307; 81001; 82077; 82140; 82550; 82553; 82803; 83605; 83735; 83930; 84436; 84439; 84443; 84479; 84484; 85025; 87040; 87086; 87635; 90715; 93005; 93041; 94760; 96374; 96375; 99285; J2060; J2920

== ENCOUNTER → 2022-07-23 | Outpatient (REF) | payer MEDICARE, OTHER ==
[~2022-07-23] MED LIST changes: +ACET500T15 PO; +ACET650S3 PR; +ARTIDRO4 OU; +BISA10SU20 PR; +CEFT1INJ5 IM; +DOK100TA2 PO; +ENSU1LIQ50 PO; +LORA-622 PO; +MILK24002 PO; +MOUKOT60 MT; +OXYC-517 PO; +PROC25SU24 PR; +TRAN1DIS4 TOP; +ZYPR2.5T2 PO
[2022-07-23 10:42] LABS: HEMATOCRIT 32.7 % (36.0-47.0); MEAN CORPUSCULAR HGB CONC 30.6 g/dl (32.0-36.5); MEAN CORPUSCULAR VOLUME 88.4 fl (80.0-96.0); PLATELET COUNT, AUTOMATED 218 10^3/uL (150-450); WHITE BLOOD COUNT 12.3 10^3/uL (4.0-10.0)
[2022-07-23 11:17] LABS: BLOOD UREA NITROGEN 40 MG/DL (9-23); CALCIUM LEVEL 8.3 MG/DL (8.3-10.6); CARBON DIOXIDE LEVEL 22 MMOL/L (20-31); CHLORIDE LEVEL 108 MMOL/L (98-107); CREATININE FOR GFR 1.61 MG/DL (0.55-1.30); FREE T3 1.6 PG/ML (2.3-4.2); FREE T4 0.65 NG/DL (0.89-1.76); GLOMERULAR FILTRATION RATE 32.2 (>32); GLUCOSE, FASTING 89 MG/DL (74-106); POTASSIUM SERUM 3.9 MMOL/L (3.5-5.1); SODIUM LEVEL 140 MMOL/L (136-145)
[2022-07-23 11:30] LABS: THYROID STIMULATING HORMONE > 150.000 uIU/ML (0.55-4.78)
== END ==
PROVIDERS: ATTEND Internal Medicine
DX: E03.9 Hypothyroidism, unspecified (principal)

== ENCOUNTER → 2022-08-22 | Outpatient (REF) | PROVIDERS: ATTEND Internal Medicine | DX: E03.9 Hypothyroidism, unspecified (principal) ==

== ENCOUNTER → 2022-09-19 | Outpatient (REF) | payer MEDICARE, OTHER ==
[~2022-09-19] MED LIST changes: -POTA10CA33 PO; +POTA10CA60 PO
== END ==
PROVIDERS: ATTEND Physician Assistant
DX: E03.9 Hypothyroidism, unspecified (principal)

== ENCOUNTER → 2022-12-19 | Outpatient (REF) | payer MEDICARE, OTHER ==
[~2022-12-19] MED LIST changes: -CEFD300C41 PO; +CEFD300C42 PO
== END ==
PROVIDERS: ATTEND Physician Assistant
DX: R05.9 Cough, unspecified (principal)